=== PATIENT | female | born 1980 | race Caucasian/White ===

== ENCOUNTER 2020-01-25 00:03 | Outpatient (CLI) | payer BC, SELFPAY ==
[2020-01-25 17:26] LABS: SARS-CoV-2 RNA PCR Negative
== END 2020-01-25 00:04 | disposition home or self-care (01) ==
LOC: ANHCOVIDDT 00:04
PROVIDERS: PCP Family Medicine; Visit Provider Internal Medicine Gastroenterology
DX: Z11.59 Encounter for screening for other viral diseases (principal)
CPT/HCPCS: 87635; C9803; U0003

== ENCOUNTER 2020-01-28 00:23 | Day surgery (SDC) | payer BC, SELFPAY ==
[2020-01-24 09:14] VITALS: BMI 20.8
[2020-01-28 08:29] VITALS: BP 117/78; PULSE 82; RESP 16; TEMP 36.8; O2SAT 100
[2020-01-28] MEDS: LACTATED RINGERS 1,000 ML 150 ML IV CONT (08:34)
--- NOTE | 2020-01-28 08:56 | P.PNAN_ITS ---
Anes - Initial Pre Proc Eval Procedure: Operation Date: 01/28/20 09:30 Proposed Procedures p Colonoscopy - Farhad Pennington MD Date/Time: 01/28/20 08:56 Surgeon: Farhad Pennington MD Pre Op Diagnosis: change in bowel Patient Data Age: 39 Gender: F Height: 5 ft 4 in Weight: 55.7 kg Last Vital Signs Temp 98.3 F 01/28/20 08:29 Pulse 82 01/28/20 08:29 Resp 16 01/28/20 08:29 BP 117/78 01/28/20 08:29 Pulse Ox 100 01/28/20 08:29 Allergies Allergy/AdvReac Type Severity Reaction Status Date / Time Sulfa (Sulfonamide Allergy Unknown Rash Verified 01/24/20 09:09 Antibiotics) Home Medications Medication Instructions Recorded Confirmed Type acetaminophen-codeine 0.5 - 1 tablet PO Q4H PRN 06/19/19 01/24/20 History [Tylenol-Codeine #3] cyclobenzaprine 10 mg PO TID PRN 06/19/19 01/24/20 History hydrocodone-acetaminophen 1 tablet PO Q4H PRN 06/19/19 01/24/20 History valacyclovir 500 mg PO DAILY 06/19/19 01/24/20 History elagolix [Orilissa] 200 mg PO BID 09/19/19 01/24/20 History esomeprazole magnesium 40 mg PO DAILY 01/24/20 01/24/20 History norethindrone acetate 5 mg PO DAILY 01/24/20 01/24/20 History Patient hx anesthesia problems: none Family hx anesthesia problems: none [facility] Past Medical History Medical History (Updated 01/28/20 @ 08:56 by Kolton Lowe MD) GERD (gastroesophageal reflux disease) Migraine Social History Social History Smoking packs per day: 0.5 Smoking cigarettes per day: 10.0 Years smoked: 15 Smoking pack-years: 7.50 Smoking status: Current every day smoker Alcohol intake: current Anes - Eval Final PreProcedure Day of Procedure 01/28/20 08:56 Patient weight: normal Heart: regular rate and rhythm Lungs: clear to auscultation Airway: Mallampati scale class II Neurological: alert and oriented Last oral intake: >/= 8 hours ASA classification: II Emergent: no Anesthetic plan: proceed Anesthesia type and monitoring: general GIVS and standard monitoring Informed Consent: The patient's anesthetic plan and its attendant risks and benefits were discussed with the patient/family/POA. Questions were solicited and answers provided to the satisfaction of the patient/family/POA.
--- NOTE | 2020-01-28 09:34 | P.HP_ITS ---
History of Present Illness History of Present Illness Consent: Risks, benefits, and alternatives have been discussed and questions answered. Patient agrees to proceed with procedure. Chief complaint: change in bowel Narrative: Radha Feliciano is a 39 year old W female referred for colonoscopy for evaluation of persistent lower abdominal pain change in bowel pattern and abdominal bloating. Patient has known endometriosis and had her last laparoscopic exam in August this year was found to have significant adhesions and underwent adhesiolysis. Symptoms have recurred over the past month. No family history of colitis colon polyps or colon cancer [facility] Past Medical History Medical History GERD (gastroesophageal reflux disease) Migraine Social History Social History Smoking packs per day: 0.5 Smoking cigarettes per day: 10.0 Years smoked: 15 Smoking pack-years: 7.50 Smoking status: Current every day smoker Alcohol intake: current Meds Home Medications and Allergies Home Medications Medication Instructions Recorded Confirmed Type acetaminophen-codeine 0.5 - 1 tablet PO Q4H PRN 06/19/19 01/24/20 History [Tylenol-Codeine #3] cyclobenzaprine 10 mg PO TID PRN 06/19/19 01/24/20 History hydrocodone-acetaminophen 1 tablet PO Q4H PRN 06/19/19 01/24/20 History valacyclovir 500 mg PO DAILY 06/19/19 01/24/20 History elagolix [Orilissa] 200 mg PO BID 09/19/19 01/24/20 History esomeprazole magnesium 40 mg PO DAILY 01/24/20 01/24/20 History norethindrone acetate 5 mg PO DAILY 01/24/20 01/24/20 History Allergies Allergy/AdvReac Type Severity Reaction Status Date / Time Sulfa (Sulfonamide Allergy Unknown Rash Verified 01/24/20 09:09 Antibiotics) Vital Signs Vital Signs - 24 hr 01/28/20 08:29 Temperature 36.8 C Pulse Rate 82 Respiratory Rate 16 Blood Pressure 117/78 Pulse Oximetry 100 Exam Const: Orientation/consciousness: patient oriented x3 Resp: Auscultation: clear to auscultation bilaterally Cardio: Rate: regular rate Rhythm: regular rhythm Heart sounds: no murmurs GI: GI Palp: Yes Soft to palpation, No Tenderness to palpation present (GI), Yes No hepatosplenomegaly present and No Palpable mass present Auscultation: normal bowel sounds Neuro: General: patient oriented x3 and no focal motor deficits Extrem: General: no pedal edema Assessment and Plan Additional Plan colonoscopy for evaluation lower abdominal pain change in bowel pattern abdominal bloating
[2020-01-28 10:22] VITALS: BP 106/73; PULSE 80; RESP 24; O2SAT 100
[2020-01-28 10:32] VITALS: BP 128/81; PULSE 68; RESP 18; O2SAT 100
[2020-01-28 10:42] VITALS: BP 113/79; PULSE 64; RESP 18; O2SAT 100
== END 2020-01-28 10:53 | disposition home or self-care (01) ==
PROVIDERS: PCP Family Medicine; Visit Provider Internal Medicine Gastroenterology
PROC: 0DJD8ZZ Inspection of Lower Intestinal Tract, Via Natural or Artificial Opening Endoscopic (ICD-10-PCS; CPT 45378; principal; 2020-01-28 09:30)
DX: R10.84 Generalized abdominal pain (principal); R19.4 Change in bowel habit; K64.4 Residual hemorrhoidal skin tags; K21.9 Gastro-esophageal reflux disease without esophagitis; F17.210 Nicotine dependence, cigarettes, uncomplicated
CPT/HCPCS: 45378; J2001; J2704; J7120

== ENCOUNTER 2020-02-13 00:23 | Outpatient (CLI) | payer BC, SELFPAY ==
[2020-02-13 18:10] LABS: SARS-CoV-2 RNA PCR Negative
== END 2020-02-13 00:24 | disposition home or self-care (01) ==
LOC: ANHCOVIDDT 00:24
PROVIDERS: PCP Family Medicine; Visit Provider Obstetrics & Gynecology
DX: Z20.828 Contact with and (suspected) exposure to other viral communicable diseases (principal); Z01.812 Encounter for preprocedural laboratory examination
CPT/HCPCS: 87635; C9803; U0003

== ENCOUNTER 2020-02-13 09:06 | Outpatient (CLI) | payer BC, SELFPAY | END 2020-02-13 09:07 | disposition home or self-care (01) | LOC: ANHSURGERY 09:08 | PROVIDERS: PCP Family Medicine; Visit Provider Obstetrics & Gynecology | DX: R10.2 Pelvic and perineal pain (principal); Z20.828 Contact with and (suspected) exposure to other viral communicable diseases; Z01.812 Encounter for preprocedural laboratory examination | CPT/HCPCS: 36415; 86850; 86900; 86901 ==

== ENCOUNTER 2020-02-15 04:55 | Day surgery (SDC) | payer BC, SELFPAY ==
[2020-02-11 09:38] VITALS: BMI 21.2
--- NOTE | 2020-02-12 07:58 | P.HP_ITS ---
H&P: HPI History of Present Illness Chief complaint: Pelvic pain Narrative: November Braden is a 39 year old female status post hysterectomy is admitted for laparoscopic bilateral salpingo- oophorectomy. She has had chronic pelvic pain and dyspareunia. She has had a GI workup which was negative. She has had pelvic draining which has been unsuccessful. She has a history of endometriosis. Medical therapy has been not helpful as well. She understands this will make her permanently menopausal. The psychologic and physiologic changes associated with this were reviewed. Risks and benefits of this procedure reviewed in full Review of Systems Review of Systems: All systems reviewed & are unremarkable except as noted in HPI and below PMFSH Past Medical History Medical History GERD (gastroesophageal reflux disease) Migraine Social History Social History Smoking packs per day: 0.5 Smoking cigarettes per day: 10.0 Years smoked: 15 Smoking pack-years: 7.50 Smoking status: Current every day smoker Alcohol intake: current Meds Home Medications and Allergies Home Medications Medication Instructions Recorded Confirmed Type acetaminophen-codeine 0.5 - 1 tablet PO Q4H PRN 06/19/19 02/11/20 History [Tylenol-Codeine #3] cyclobenzaprine 10 mg PO TID PRN 06/19/19 02/11/20 History hydrocodone-acetaminophen 1 tablet PO Q4H PRN 06/19/19 02/11/20 History valacyclovir 500 mg PO DAILY 06/19/19 02/11/20 History esomeprazole magnesium 40 mg PO DAILY 01/24/20 02/11/20 History 21-iron fu-folic acid 1 tablet PO DAILY 02/11/20 02/11/20 History [ Complete] Allergies Allergy/AdvReac Type Severity Reaction Status Date / Time Sulfa (Sulfonamide Allergy Unknown Rash Verified 02/11/20 09:27 Antibiotics) Exam Const: General: no acute distress Eyes: General: appearance normal, both eyes and all related structures Neck: Neck: supple and no JVD Thyroid: thyroid normal Resp: Effort & Inspection: normal respiratory effort Auscultation: clear to auscultation bilaterally Cardio: Rate: regular rate Rhythm: regular rhythm GI: Inspection: non-distended GI Palp: Yes Soft to palpation, No Tenderness to palpation present (GI) and No Guarding due to palpation present (GI) Auscultation: normal bowel sounds : General: Yes bladder normal to inspection External Female Exam: normal external appearance Speculum Exam - Vagina: tenderness Speculum Exam - Cervix: Cervix absent Bimanual exam- vagina & uterus: uterus absent Bimanual Exam- Adnexa, other: tender bilaterally and cul-de-sac tenderness Skin: General skin exam: no rashes or lesions noted Extrem: General: normal to inspection and no edema Psych: Mental Status: mental status grossly normal Affect: normal affect Assessment and Plan Additional Plan impression: Chronic pelvic pain and dyspareunia secondary to endometriosis Plan: Laparoscopic bilateral salpingo-oophorectomy
[2020-02-15] VITALS (9 sets, daily range): BP systolic 106–136; BP diastolic 65–96; PULSE 48–77; RESP 14–18; TEMP 36.2–37.2; O2SAT 94–100
--- NOTE | 2020-02-15 06:34 | WPDHPUPDATE1 ---
History and Physical Update Update Date/Time: 02/15/20 06:34 History and Physical has been reviewed, including an updated exam of the patient. There are NO changes in the patient's condition. Risks, benefits, and alternatives have been discussed and questions answered. Patient agrees to proceed with procedure.
[2020-02-15] MEDS: LACTATED RINGERS 1,000 ML 30 ML IV CONT (09:55)
--- NOTE | 2020-02-15 10:08 | P.PNAN_ITS ---
Anes - Initial Pre Proc Eval Procedure: Operation Date: 02/15/20 11:30 Proposed Procedures p Laparoscopic Bilateral Salpingo-Oophorectomy - Je Jones MD Date/Time: 02/15/20 10:08 Surgeon: Je Jones MD Pre Op Diagnosis: Pelvic pain Patient Data Age: 39 Gender: F Height: 1.6 m Weight: 54.6 kg Allergies Allergy/AdvReac Type Severity Reaction Status Date / Time Sulfa (Sulfonamide Allergy Unknown Rash Verified 02/11/20 09:27 Antibiotics) Home Medications Medication Instructions Recorded Confirmed Type acetaminophen-codeine 0.5 - 1 tablet PO Q4H PRN 06/19/19 02/11/20 History [Tylenol-Codeine #3] cyclobenzaprine 10 mg PO TID PRN 06/19/19 02/11/20 History hydrocodone-acetaminophen 1 tablet PO Q4H PRN 06/19/19 02/11/20 History valacyclovir 500 mg PO DAILY 06/19/19 02/11/20 History esomeprazole magnesium 40 mg PO DAILY 01/24/20 02/11/20 History 21-iron fu-folic acid 1 tablet PO DAILY 02/11/20 02/11/20 History [ Complete] hydrocodone-acetaminophen [[place]eraine] 1 tablet PO Q4H PRN #30 tablet 02/15/20 Rx Patient hx anesthesia problems: none Family hx anesthesia problems: none PMFSH Past Medical History Medical History GERD (gastroesophageal reflux disease) Migraine Social History Social History Smoking packs per day: 0.5 Smoking cigarettes per day: 10.0 Years smoked: 15 Smoking pack-years: 7.50 Smoking status: Current every day smoker Alcohol intake: current Anes - Eval Final PreProcedure Day of Procedure 02/15/20 10:08 Patient weight: normal Heart: regular rate and rhythm Lungs: clear to auscultation and normal air movement Airway: Mallampati scale class II Neurological: alert and oriented Last oral intake: >/= 8 hours ASA classification: II Emergent: no Anesthetic plan: proceed Anesthesia type and monitoring: general ETT and standard monitoring Informed Consent: The patient's anesthetic plan and its attendant risks and benefits were discussed with the patient/family/POA. Questions were solicited and answers provided to the satisfaction of the patient/family/POA.
[2020-02-15] MEDS: KETOROLAC 30 MG/ML VIAL (*BKC) IV PUSH (10:59)
--- NOTE | 2020-02-15 11:04 | P.OP_ITS ---
Procedure Note - Detailed Date of procedure: 02/15/20 Pre-op diagnosis: Pelvic pain Surgeon: Je Jones MD Postop diagnosis: Pelvic pain / endometriosis Procedure: Laparoscopic destruction of endometriosis and bilateral salpingo- oophorectomy EBL: 5Cc Anesthesia: General endotracheal Complications: None Findings: Absent uterus small areas of endometriosis along the vaginal cuff. Endometriosis on the left ovary Description of procedure: The patient was prepped and draped in the sterile fashion placed in the dorsal lithotomy position. Under excellent general endotracheal anesthesia a sponge stick was placed in the vagina. The bladder was then emptied of clear urine with catheter. Gloves were changed. Supraumbilical incision made. Veress needle passed in the abdomen. Abdomen was filled with CO2 gas [id number]. 5Mm trocar was advanced under direct visualization assuring no injury. The above findings were seen. A patient was placed in Trendelenburg and a left lateral quadrant incision made and the 5mm trocar advanced under direct visualization. A right lower quadrant incision made in the 10mm trocar advanced under direct visualization. The areas of endometriosis were photo documented. These were then point cauterized at 35 w per 2nd. The left infundibulopelvic structure was then skeletonized. This was clamped, burned, cut with the LigaSure and placed in the cul-de-sac. In like fashion the right infundibulopelvic structure was skeletonized. This was clamped, burned, cut. The 2 ovaries were then placed in the Endo-Catch. Excellent hemostasis was seen. The gas was removed from the abdomen after the specimens were removed through the right lower quadrant. The incisions were closed with 4 O Monocryl and glue. All sponge, needle, instrument counts were correct. There were no immediate complications. Patient went to recovery in satisfactory condition
== END 2020-02-15 13:00 | disposition home or self-care (01) ==
PROVIDERS: PCP Family Medicine; Visit Provider Obstetrics & Gynecology
PROC: (CPT 49320; principal; 2020-02-15 11:30)
DX: R10.2 Pelvic and perineal pain (principal); N80.3 Endometriosis of pelvic peritoneum; N73.6 Female pelvic peritoneal adhesions (postinfective); N94.10 Unspecified dyspareunia; K21.9 Gastro-esophageal reflux disease without esophagitis; F17.210 Nicotine dependence, cigarettes, uncomplicated
CPT/HCPCS: 58661; 58662; 88305; A9270; J1100; J1885; J2250; J2405; J2704; J2710; J3010; J7120

== ENCOUNTER 2020-04-11 07:32 | Outpatient (CLI) | payer BC, SELFPAY ==
--- NOTE | ~2020-04-11 | US_ITS ---
EXAMINATION: US abdomen complete DATE: 04/11/2020 08:30 INDICATION: Right upper quadrant abdominal pain. TECHNIQUE: Multiple grayscale and Doppler ultrasound images of the abdomen were obtained. COMPARISON: CT abdomen and pelvis 04/04/2019 FINDINGS: Abdominal aorta is normal in caliber. Inferior vena cava is normal. The visualized portions of the head, body, and tail of the pancreas are normal. The liver is normal without focal lesion. Th ere is normal flow in main portal vein. The gallbladder is normal in size. No gallstones or gallbladd er wall thickening. There was no sonographic Serrano sign. The common duct is normal and measures 3 mm . The kidneys are normal in size. There is a 5 mm stone in right kidney. The spleen is normal in size . IMPRESSION: 1. 5 mm nonobstructing right kidney stone. Reviewed, dictated and finalized at location B.
--- NOTE | ~2020-04-11 | US_ITS ---
EXAMINATION: US pelvic complete w TV DATE: 04/11/2020 08:30 INDICATION: Left lower quadrant abdominal pain. TECHNIQUE: Multiple transabdominal and transvaginal sonographic images of the pelvis were obtained. COMPARISON: Pelvis ultrasound 06/08/2019 FINDINGS: TRANSABDOMINAL ULTRASOUND: The uterus is absent. There is no free fluid in the pelvis. TRANSVAGINAL ULTRASOUND: The ovaries are absent. IMPRESSION: 1. Absent uterus and ovaries. Reviewed, dictated and finalized at location B.
== END 2020-04-11 07:33 | disposition home or self-care (01) ==
PROVIDERS: PCP Family Medicine; Visit Provider Obstetrics & Gynecology
DX: R10.11 Right upper quadrant pain (principal); R10.32 Left lower quadrant pain; Z90.710 Acquired absence of both cervix and uterus; N20.0 Calculus of kidney
CPT/HCPCS: 76700; 76830; 76856

== ENCOUNTER 2020-06-04 13:51 | Outpatient (CLI) | payer BC, SELFPAY ==
--- NOTE | ~2020-06-04 | CT_ITS ---
EXAMINATION: CT abdomen pelvis w con INDICATION: Endometriosis, umbilical hernia, abdominal pain TECHNIQUE: Computed tomographic images of the abdomen and pelvis were obtained after the administrati on of 100 cc of Omnipaque 350 intravenous contrast. The dose-length product (DLP) was 221.87 mGy-cm. Automated exposure control and iterative reconstruction technique were employed. COMPARISON: 04/04/2019 FINDINGS: There are patchy nodular and airspace opacities of the visualized lung bases. The heart siz e is normal. A 4 mm cyst is noted in the right hepatic lobe. The spleen, pancreas, gallbladder, and a drenal glands are normal. There is a 5 mm nonobstructing stone of the right kidney. The left kidney i s unremarkable. No pathologically enlarged abdominal or pelvic lymph nodes are identified. There is n o free intraperitoneal gas or evidence of bowel obstruction. There are changes of hysterectomy and bi lateral salpingo-oophorectomy. The appendix is normal. There is a fat-containing umbilical hernia. Mi ld lumbar spondylosis is noted. IMPRESSION: 1. Fat-containing umbilical hernia. Reviewed, dictated and finalized at location A.
== END 2020-06-04 13:52 | disposition home or self-care (01) ==
PROVIDERS: PCP Family Medicine; Visit Provider Obstetrics & Gynecology
DX: R10.84 Generalized abdominal pain (principal); K42.9 Umbilical hernia without obstruction or gangrene
CPT/HCPCS: 74177; Q9967

== ENCOUNTER 2020-07-08 10:51 | Outpatient (CLI) | payer BC, SELFPAY ==
--- NOTE | ~2020-07-08 | XR_ITS ---
EXAMINATION: XR abdomen/kub 1V EXAM DATE: 07/08/2020 11:19 INDICATION: Right flank pain. TECHNIQUE: Frontal projection(s) of the abdomen for interpretation. Comparison is made to prior exami nation from 07/17/2019. FINDINGS: There is 5 mm right mid calyceal stone again noted. No other suspicious calcifications. Mo derate amount of colonic stool and gas. No small bowel obstruction. There is no organomegaly. IMPRESSION: Right nephrolithiasis. Reviewed, dictated and finalized at location A. T [employer]ISH[employer] IMPRESSION: Right nephrolithiasis.
== END 2020-07-08 10:52 | disposition home or self-care (01) ==
PROVIDERS: PCP Family Medicine; Visit Provider Urology
DX: N20.0 Calculus of kidney (principal)
CPT/HCPCS: 74018

== ENCOUNTER 2021-01-27 16:57 | Outpatient (CLI) | payer BC, SELFPAY ==
--- NOTE | ~2021-01-27 | XR_ITS ---
XR abdomen/kub 1V DATE: 01/27/2021 17:16 INDICATION: Right renal stone. History of kidney stones, lithotripsy. TECHNIQUE: AP projection, 2 views COMPARISON: 07/08/[address] abdomen pelvis FINDINGS: Stable approximately 5 mm calcified calculus of mid right kidney. No other urinary tract ca lcification is detected radiographically. The psoas shadows are intact. No visceromegaly is evident. There is no evidence of bowel obstruction. The lung bases are clear. Heart size appears normal. IMPRESSION: Stable 5 mm right mid renal calcified calculus Reviewed, dictated and finalized at Location A. Reviewed, dictated and finalized at location A.
== END 2021-01-27 16:58 | disposition home or self-care (01) ==
LOC: ANHIMG 16:59
PROVIDERS: PCP Family Medicine; Visit Provider Nurse Practitioner Adult Health
DX: N20.0 Calculus of kidney (principal)
CPT/HCPCS: 74018

== ENCOUNTER 2021-08-13 09:30 | Outpatient (CLI) | payer BC, SELFPAY | END 2021-08-13 09:31 | disposition home or self-care (01) | LOC: ANHSURGERY 09:32 | PROVIDERS: PCP Family Medicine; Visit Provider Surgery | DX: Z01.812 Encounter for preprocedural laboratory examination (principal); R10.2 Pelvic and perineal pain | CPT/HCPCS: 36415; 86850; 86900; 86901 ==

== ENCOUNTER → 2021-08-15 00:10 | Outpatient (CLI) | payer BC, SELFPAY ==
[2021-08-15 17:21] LABS: SARS-CoV-2 RNA PCR Negative (Negative)
== END ==
PROVIDERS: PCP Family Medicine; Visit Provider Surgery
DX: Z01.812 Encounter for preprocedural laboratory examination (principal); Z20.822 Contact with and (suspected) exposure to COVID-19
CPT/HCPCS: C9803; U0003; U0005

== ENCOUNTER 2021-08-18 01:40 | Day surgery (SDC) | payer BC, SELFPAY ==
[2021-08-10 15:01] VITALS: BMI 22.0
--- NOTE | 2021-08-10 15:05 | PC.NURSE ---
Report to the Outpatient Waiting Room, entrance under the green pavilion located off [facility], at time __0930_ on date 08-18-2021_. OR Time: __1130_. - You and your visitor will be asked a series of questions to screen for COVID 19 for your protection. - A mask is required within the hospital. - Only one visitor is allowed at this time. Patient visitors will be guided where to wait when not with patient. Preoperative COVID Testing Requirements: Covid test 08-15-2021 at 835am. No COVID Test needed if: (proof is required; if not received patient will have Rapid Test prior to entry) - Patient has received COVID Vaccine at least 14 days prior to procedure date or - Patient has positive COVID test result within last 90 days of surgery date. COVID Test needed if above criteria is not met If not COVID vaccinated a COVID test must be conducted within 72 hours of surgery and patient is asked to isolate self from time of testing until procedure. You will go to the [employer] [facility] for your COVID testing. The [employer] [facility] site is located at the corner of [address] [facility]. You will only be called if COVID results are positive and your surgeon may reschedule your elective surgery date. Patients may have clear liquids (water, carbonated beverages, clear teas, apple juice) until 3 hours prior to surgery with a maximum of 20 ounces. - No food from midnight until time of surgery - Infants may have breast milk until 4 hours before surgery, infant formula 6 hours prior to surgery. - Children will be allowed to drink immediately following surgery. If applicable, please bring a bottle or sippy cup to assist with drinking. Juice, water, soda, and popsicles are readily available. For infants on formula, please bring formula the day of surgery. Pacifiers are allowed. Take the following medications with a SIP of water the morning of surgery: Medications to discontinue per physician Stop multivitamin [id number] Date to take last dose Please no make-up, nail yi, hairspray, perfume, deodorant, or body powder the day of surgery. No jewelry (including any body piercings) or valuables the day of surgery, leave them at home. Please take a shower or bath the night before, or the morning of, surgery with an antibacterial soap. Wear comfortable, loose fitting clothing. Children are encouraged to wear pajamas. - Jewelry must be removed prior to entering the operating room. Rings and piercings that are not removed may be cut off. - The hospital will not accept responsibility for valuables. - Please leave all valuables, including medications, at home the day of surgery. If you are going home after surgery, a licensed industrial tractor driver must drive you home. - NO public transportation without another adult. - We recommend that an adult stay with you for 24 hours following discharge. - We also recommend that you do not drive, make important decision, drink alcoholic beverages, or take any drugs that were not prescribed by your health care provider for at least 24 hours after your discharge time. For Pediatric surgeries, we recommend two adults accompany the child home (only one inside the building at this time). Follow any additional instructions given to you from your surgeon. Telephone instructions given to _Patient____and asked if any additional questions and then verbalized understanding. Patient advised to call surgeon office or pre surgery nurse liaison [phone] if any additional questions.
--- NOTE | 2021-08-11 16:14 | PM.IMHP ---
H&P: HPI History of Present Illness Date/Time: 08/11/21 16:14 31-year-old female status post hysterectomy admitted for repair of ventral hernia with Dr. Celia mena. She will undergo diagnostic laparoscopy secondary to chronic pelvic pain and discomfort. She has a long history of endometriosis. Risks and benefits reviewed in great detail Chief Complaint: Ventral hernia and pelvic pain Review of Systems Review of Systems: All systems reviewed & are unremarkable except as noted in HPI and below PMFSH Past Medical History Medical History GERD (gastroesophageal reflux disease) History of kidney stones Migraine Surgical History Surgical History Endometriosis determined by laparoscopy Laparoscopic destruction of endometriosis. H/O: hysterectomy History of bilateral salpingo-oophorectomy 01/2020 Hx of nephrolithotomy with removal of calculi Apr 2019, June 2019 Family History Family History Grandparent Diabetes mellitus Heart disease Family history of hypertension Family history of stroke Father Osteoporosis Mother Osteoporosis Social History Social History Smoking packs per day: 0.5 Smoking cigarettes per day: 10.0 Years smoked: 17 Smoking pack-years: 8.50 Smoking status: Former smoker Tobacco type: cigarettes Alcohol intake: current Alcohol use details: Rarely Additional living arrangements comments: Patient lives at home with her and two children, ages 5&9. 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 Gender identity (if verbalized by the patient): Female Meds Home Medications and Allergies Home Medications Medication Instructions Recorded Confirmed Type cyclobenzaprine 10 mg PO TID PRN 06/19/19 08/10/21 History hydrocodone-acetaminophen 1 tablet PO Q4H PRN 06/19/19 08/10/21 History valacyclovir 500 mg PO DAILY 06/19/19 08/10/21 History estradiol [EstroGel] 1.25 g TOPICAL DAILY 08/10/21 08/10/21 History multivitamin 1 tablet PO DAILY 08/10/21 08/10/21 History progesterone micronized 100 mg PO DAILY 08/10/21 08/10/21 History Allergies Allergy/AdvReac Type Severity Reaction Status Date / Time Sulfa (Sulfonamide Allergy Unknown Rash Verified 08/10/21 14:46 Antibiotics) Exam Const: General: no acute distress Eyes: General: appearance normal, both eyes and all related structures Neck: Neck: supple and no JVD Thyroid: thyroid normal Resp: Effort & Inspection: normal respiratory effort Auscultation: clear to auscultation bilaterally Cardio: Rate: regular rate Rhythm: regular rhythm GI: Inspection: non-distended GI Palp: Yes Soft to palpation, No Tenderness to palpation present (GI) and No Guarding due to palpation present (GI) Auscultation: normal bowel sounds : External Female Exam: normal external appearance Speculum Exam - Vagina: normal appearance of the vagina Speculum Exam - Cervix: Cervix absent Bimanual exam- vagina & uterus: uterus absent Bimanual Exam- Adnexa, other: no masses and tender bilaterally Skin: General skin exam: no rashes or lesions noted Extrem: General: normal to inspection and no edema Psych: Mental Status: mental status grossly normal Affect: normal affect Assessment and Plan Additional Plan Impression: Pelvic pain in a patient status post hysterectomy with a ventral hernia Plan diagnostic laparoscopy. Dr. Dr. Balderas will repair repair of ventral hernia
[2021-08-18] VITALS (8 sets, daily range): BP systolic 92–111; BP diastolic 58–83; PULSE 58–92; RESP 14–18; TEMP 36.1–36.5; O2SAT 96–100
--- NOTE | 2021-08-18 09:09 | WPDANESEPPF ---
Anes - Initial Pre Proc Eval Procedure: Operation Date: 08/18/21 11:30 Proposed Procedures p Open Ventral Hernia Repair with Mesh - Roger Macario DO s Diagnostic Laparoscopy - Je Jones MD Date/Time: 08/18/21 09:09 Surgeon: Roger Macario DO Pre Op Diagnosis: ventral hernia, pelvic pain Patient Data Age: 40 Gender: F Height: 1.63 m Weight: 58.2 kg Allergies Allergy/AdvReac Type Severity Reaction Status Date / Time Sulfa (Sulfonamide Allergy Unknown Rash Verified 08/10/21 14:46 Antibiotics) Home Medications Medication Instructions Recorded Confirmed Type cyclobenzaprine 10 mg PO TID PRN 06/19/19 08/10/21 History hydrocodone-acetaminophen 1 tablet PO Q4H PRN 06/19/19 08/10/21 History valacyclovir 500 mg PO DAILY 06/19/19 08/10/21 History estradiol [EstroGel] 1.25 g TOPICAL DAILY 08/10/21 08/10/21 History multivitamin 1 tablet PO DAILY 08/10/21 08/10/21 History progesterone micronized 100 mg PO DAILY 08/10/21 08/10/21 History Patient hx anesthesia problems: none Family hx anesthesia problems: none Results Review: All pre-operative results and documents have been reviewed as part of the pre-operative evaluation. [facility] Past Medical History Medical History (Updated 08/18/21 @ 09:10 by Angelo Malone MD) Chronic narcotic use Endometriosis GERD (gastroesophageal reflux disease) History of kidney stones Migraine Tobacco abuse Ventral hernia without obstruction or gangrene Surgical History Surgical History Endometriosis determined by laparoscopy Laparoscopic destruction of endometriosis. H/O: hysterectomy History of bilateral salpingo-oophorectomy 01/2020 Hx of nephrolithotomy with removal of calculi Apr 2019, June 2019 Family History Family History Grandparent Diabetes mellitus Heart disease Family history of hypertension Family history of stroke Father Osteoporosis Mother Osteoporosis Social History Social History Smoking packs per day: 0.5 Smoking cigarettes per day: 10.0 Years smoked: 15 Smoking pack-years: 7.50 Smoking status: Current every day smoker Tobacco type: cigarettes Alcohol intake: current Alcohol use details: Rarely Additional living arrangements comments: Patient lives at home with her and two children, ages 5&9. Additional occupation/education comments: [employer] Gender identity (if verbalized by the patient): Female Anes - Eval Final PreProcedure Day of Procedure 08/18/21 09:09 Patient weight: normal Heart: regular rate and rhythm Lungs: clear to auscultation and normal air movement Airway: Mallampati scale class II Neurological: alert and oriented Last oral intake: >/= 8 hours ASA classification: III Emergent: no Anesthetic plan: proceed Anesthesia type and monitoring: general ETT Results Review: All pre-operative results and documents have been reviewed as part of the pre-operative evaluation. Informed Consent: The patient's anesthetic plan and its attendant risks and benefits were discussed with the patient/family/POA. Questions were solicited and answers provided to the satisfaction of the patient/family/POA.
--- NOTE | 2021-08-18 09:11 | WPDANESPNB ---
Anes - Peripheral Nerve Block Date/Time: 08/18/21 09:11 I have discussed with the patient/family/POA the placement of a peripheral nerve block for post-operative pain management, including associated risks, benefits, complications, and side effects. Alternative methods of post-operative analgesia were detailed. Questions were solicited and answers provided to the satisfaction of the patient/family/POA. Time-Out: A pre-procedural Time-Out was completed immediately before starting the procedure and confirmed: Patient Identification, Site, Procedure, Patient Position and the Availability of Requisite Equipment. Clinical Indications: Acute post-operative pain management requested by the operative surgeon. Nerve Block Insertion Note Anes-nerve block: other (b/l t7 elizabeth block) Patient position: other (sitting) Skin prep: chlorhexidine Needle: 22 gauge, stimulating, insulated echogenic needle. Needle length: 80 mm Technique: ultrasound Technique comment: in plane Injectate: bupivacaine 0.25% with epi 5 mcg/ml (40cc) Observations: tolerated well Complications: none Procedure start time:: 1055 Procedure end time:: 1100
[2021-08-18] MEDS: ACETAMINOPHEN 500 MG TABLET 1000 MG PO (10:38)
[2021-08-18] MEDS: KETOROLAC 15 MG/ML VIAL (*BKC) IV PUSH (10:39)
[2021-08-18] MEDS: LACTATED RINGERS 1,000 ML 30 ML IV CONT ×2 (10:39→12:39)
--- NOTE | 2021-08-18 10:52 | WPDHPUPDATE1 ---
History and Physical Update Update Date/Time: 08/18/21 10:52 History and Physical has been reviewed, including an updated exam of the patient. There are NO changes in the patient's condition. Risks, benefits, and alternatives have been discussed and questions answered. Patient agrees to proceed with procedure.
--- NOTE | 2021-08-18 11:27 | WPDHPUPDATE1 ---
History and Physical Update Update Date/Time: 08/18/21 11:27 History and Physical has been reviewed, including an updated exam of the patient. There are NO changes in the patient's condition. Risks, benefits, and alternatives have been discussed and questions answered. Patient agrees to proceed with procedure.
[2021-08-18] MEDS: ceFAZolin 2 GM/D5W 50 ML 2 GM/50 ML BAG IVPB (11:30)
--- NOTE | 2021-08-18 12:05 | W.PM.PROC2 ---
Procedure Note - Detailed Date of Procedure 08/18/21 Pre-op Diagnosis ventral hernia, pelvic pain Post-op Diagnosis other (Mild endometriosis) Procedure Performed Laparoscopic destruction endometriosis Surgeon Je Jones MD Anesthesia general Indications 40-year-old female status post hysterectomy and bilateral salpingo-oophorectomy with pelvic pain and and ventral hernia g Findings Absent uterus ovaries and tubes. The pelvis appeared relatively pristine. There were 2 small areas of endometriosis on the vaginal cuff which were cauterized at 35 w per 2nd with monopolar cautery Description of Procedure The patient was prepped draped in the normal sterile fashion placed in the dorsal lithotomy position. Under excellent general trach anesthesia weighted speculum placed post rupture Gyne. Sponge stick placed in vagina bladder drained of clear urine. The weighted speculum was removed and the gloves were changed. A supraumbilical incision made the Veress needle passed in the abdomen. Abdomen filled with CO2 gas 15mmmmmercury. The 5mm trocar advanced under direct visualization assuring no injury. Two small areas of endometriosis were seen on the vaginal cuff. These were point cauterized at 35 w per 2nd with monopolar cautery. Irrigation undertaken no other abnormalities were seen. Photo documentation was undertaken. Dr. Jaimes curative over from there. The sponge stick was removed from the vagina and he was to close the other incisions. Please see his operative report for the remainder of the procedure Estimated Blood Loss 5 Packing No Pathology none sent Complications No immediate complications Condition stable Disposition no change
[2021-08-18] MEDS: BUPIVACAINE HCL 0.5% PF 30 ML VIAL INFILTRATE (12:08)
--- NOTE | 2021-08-18 12:48 | P.OP_ITS ---
Procedure Note - Detailed Date of Procedure 08/18/21 Pre-op Diagnosis ventral hernia, pelvic pain Post-op Diagnosis same Procedure Performed Open ventral hernia repair Surgeon Roger Macario, DO Anesthesia general and local (0.5% bupivacaine) Indications This is a 40-year-old woman who presents with periumbilical pain and a bulge that she has noticed over the past several years. It has become more symptomatic over the past year. She previously had a CT which showed evidence of a fat containing hernia near the umbilicus. A periumbilical ventral hernia was identified just to the left of the umbilical stalk on physical exam. Discussions were made with the patient about treatment options and decision was made to proceed with ventral hernia repair with possible mesh. Findings After completing the diagnostic laparoscopy by Dr. Alice Simeon, I then proceeded with ventral hernia repair. The supraumbilical incision was extended to visualize the periumbilical hernia. A 4-5 mm hernia was identified at the fascia. The hernia defect was repaired using 0 Ethibond [id number] sutures in a vertical fashion. No specimens were obtained for pathology. No mesh was required for repair. Description of Procedure Procedure as well as risks, benefits, and alternatives were discussed with the patient. Written consent was obtained and placed in chart prior to procedure. Patient was brought back to surgical suite. She was placed supine on operating table. She was then intubated by Anesthesia Department. Her abdomen was prepped and draped in sterile fashion using chlorhexidine prep. After the diag nostic laparoscopy was completed, I then proceeded with ventral hernia repair. 0.5% bupivacaine was infiltrated locally around the operative area. A 4 cm curvilinear incision was made just superior to the umbilicus using a 15 blade scalpel. Electrocautery was used for hemostasis and for dissection down through the subcutaneous fat. Hernia sac was encountered and this was carefully freed up from surrounding subcutaneous fat using electrocautery. The hernia sac was freed up all the way down to the level of the fascia, and then it was transected using electrocautery. The hernia sac was excised and discarded. The umbilical stalk was then lifted off of the fascia with electrocautery. The hernia defect was then measured. This was measuring approximately 4 mm. The decision was made to repair the hernia defect primarily using 0 Ethibond [id number]-rb-[id number] sutures. Total of 3 sutures were placed in a vertical fashion to approximate the fascia. The sutures were tied down in place. The repair was inspected and appeared secure. 0.5% bupivacaine was infiltrated around the fascia and subcutaneous space. The umbilical stalk was then reapproximated to the fascia using a 3 0 Vicryl simple interrupted suture. The deep dermis was reapproximated using 3 0 Vicryl simple interrupted sutures, and then the skin was approximated using 4 Monocryl running subcuticular suture. Exofin glue was then applied on top. The patient was then awakened from anesthesia, extubated, and transferred to recovery. Estimated Blood Loss 5 Complications No immediate complications Condition stable Disposition same day
[2021-08-18] MEDS: oxyCODONE HCL (*CRX) 5 MG TAB IR PO (13:44)
--- NOTE | 2021-08-18 14:15 | SUR.PHASEII ---
pt meets discharge criteria. lisa petty is helping pt get dressed then pt is waiting for her ride.
== END 2021-08-18 14:23 | disposition home or self-care (01) ==
PROVIDERS: Obstetrics & Gynecology; PCP Family Medicine; Visit Provider Surgery
PROC: 0WQF0ZZ Repair Abdominal Wall, Open Approach (ICD-10-PCS; CPT 49560; principal; 2021-08-18 11:30)
PROC: (CPT 49320; 2021-08-18 11:30)
DX: K43.9 Ventral hernia without obstruction or gangrene (principal); Z79.891 Long term (current) use of opiate analgesic; F17.210 Nicotine dependence, cigarettes, uncomplicated
CPT/HCPCS: 49560; A9270; J0690; J1100; J1885; J2250; J2405; J2704; J3010; J7030; J7120

== ENCOUNTER 2023-09-10 12:22 | Outpatient (CLI) | payer BC, SELFPAY ==
--- NOTE | ~2023-09-10 | CT_ITS ---
CT of the Abdomen and Pelvis: Indication: Abdominal discomfort, endometriosis Technique: 2.5 mm axial scans were obtained through the abdomen and pelvis following intravenous adm inistration of 100 cc of Omnipaque 350. Dose reduction technique was used on this scan by utilizing a utomated exposure control and iterative reconstruction technique. The dose-length product (DLP) was 1 97.06 mGy-cm. COMPARISON: 06/04/2020 Findings: Scans through the lung bases are unremarkable. The liver, spleen, pancreas, gallbladder, adrenals and left kidney are within normal limits. 6 mm rig ht nonobstructing renal stone is again present. No evidence of aortic aneurysm. No lymphadenopathy. No bowel obstruction or bowel wall thickening. There is no evidence to suggest acute appendicitis. Images through the pelvis were performed. Urinary bladder unremarkable. Patient is post hysterectomy. No definite pelvic mass seen. No ascites. Impression: No acute abnormality. Stable 6 mm nonobstructing right renal stone. Reviewed, dictated and finalized at location . [facility] LAB TECHNICIAN Impression: No acute abnormality. Stable 6 mm nonobstructing right renal stone.
== END 2023-09-10 12:23 | disposition home or self-care (01) ==
LOC: ANHIMG 12:23
PROVIDERS: Visit Provider Obstetrics & Gynecology
DX: N20.0 Calculus of kidney (principal); Z87.760 Personal history of (corrected) congenital diaphragmatic hernia or other congenital diaphragm malformations
CPT/HCPCS: 74177; Q9967

== ENCOUNTER 2024-11-29 09:32 | Outpatient (NON) | payer BC, SELFPAY ==
--- OUTSIDE RECORDS SUMMARY | 2024-11-29 09:57 | XMS_ITS | Clinical Summary ---
Author Organization [facility] Address [address] [place] [address] Care Team Providers Care Cement Sprayer Helper Name Role Phone Gigi Kern MD Primary Care Provider [phone] Source Comments [facility],non-owned Affiliates and Associated Physician Practices is amultiple site organization consisting of ambulatory clinics and hospital sitesin [place], [place], [place] and [place]. This disclosure is being madepursuant to the Care Everywhere program and may not contain all information available regarding this patient. Last updated 18.[facility] Allergies Active Allergy Reactions Criticality Noted Date Comments Sulfa Drugs Rash Medium 07/23/2020 Medications * Be aware that medications may not be up to date on this document. Alwaysverify current medications with the patient. Medication Sig Dispensed Refills Start Date End Date Status valACYclovir (VALTREX) 500 MG tablet Take 1 (one) tablet by mouth once daily 03/28/2020 Active ESTROGEL 0.75 MG/1.25 GM (0.06%) gel Apply 1 applicator to affected area once daily 05/02/2020 Active cyclobenzaprine (FLEXERIL) 10 MG tablet Take 1 (one) tablet by mouth at bedtime 30 tablet 2 10/27/2020 Active Meth-Hyo-M Bl-Na Phos-Ph Antione (URIBEL) 118 MG Take 1 (one) capsule by mouth 3 times daily as needed 60 capsule 1 12/22/2020 Active bupivacaine (MARCAINE) 0.5 % injectionIndication s:Chronic interstitial cystitis,Chronic pelvic pain in female by Infiltration route Two times a week Mix with Heparin. Insert via urethral catheter into bladder 1-2x/weekly as needed. 240 mL 3 01/05/2021 Active Heparin Sodium, Porcine, [address]607 UNIT/ML injectionIndication s:Interstitial Cystitis 1 mL by Intravesical route Two times a week Mix with Bupivacaine. Insert per urethral catheter weekly as directed. Reasons: Chronic Bladder Wall Inflammation 8 vial 3 01/05/2021 Active Syringe/Needle, Disp, (SYRINGE 3CC/20GX1 ) 20G X 1 3 ML MISCIndications:Int erstitial Cystitis Use 1 package Two times a week Use with Heparin. Reasons: Chronic Bladder Wall Inflammation 8 Each 3 01/05/2021 Active Irrigation Supplies (BARD IRRIGATION SYRINGE/BULB) MISCIndications:Chr onic interstitial cystitis,Chronic pelvic pain in female 1 syringe by Intravesical route Two times a week Must connect to bladder catheter. 8 Each 3 01/06/2021 Active Catheters (BARDIA URETHRAL CATHETER 14FR) MISCIndications:Chr onic interstitial cystitis,Chronic pelvic pain in female 1 Units by Intravesical route Two times a week Please dispense 12 Fr. Please dispense a box in case she breaks sterile field. 8 Each 3 01/06/2021 Active Lubricants (SB LUBRICATING JELLY) GELIndications:Surveillance Director madeline interstitial cystitis,Chronic pelvic pain in female by Intravesical route Two times a week Apply .25g to tip of catheter when self catheterizing. Must be water soluble, STERILE, and greaseless. 30 g 1 01/06/2021 Active Progesterone (PROMETRIUM) 100 MG capsule Take 1 (one) capsule by mouth at bedtime 30 capsule 2 03/23/2021 Active methocarbamol (Robaxin) 500 MG tablet Take 2 (two) tablets by mouth every 8 hours 120 tablet 11/18/2022 Active ketorolac (Toradol) 10 MG tablet Take 1 (one) tablet by mouth every 6 hours as needed for Pain 20 tablet 03/08/2023 Active Other Insert 1 suppository into the vagina every 12 hours as needed Valium/Baclofen 10/8 mg; place one suppository in the vagina as needed for pain, up to every 12 hours 30 Each 04/06/2023 Active Other Insert 1 suppository into the vagina every 12 hours as needed Valium/Baclofen 5/4 mg; place one suppository in the vagina as needed for pain, up to every 12 hours 30 Each 04/06/2023 Active Other Insert 1 suppository into the vagina every 12 hours as needed Valium/Baclofen 5/4 mg; place one suppository in the vagina as needed for pain, up to every 12 hours 60 Each 05/18/2023 Active Active Problems No known active problems Social History Tobacco Use Types Packs/Day Years Used Date Smoking Tobacco: Every Day Cigarettes Smokeless Tobacco: Never Tobacco Cessation:Ready to Q uit: Not Asked; Counseling Given: Not Answered Alcohol Use Standard Drinks/Week Comments Yes 0 (1 standard drink = 0.6 oz pur e alcohol) PHQ-2 Answer Date Recorded PHQ2 TOTAL SCORE 1 03/03/2023 Sex and Gender Information Value Date Recorded Sex Assigned at Not on file Gender Identity Not on file Sexual Orientation Not on file Last Filed Vital Signs Vital Sign Reading Time Taken Comments Blood Pressure 110/82 03/03/2023 8:29 AM CDT Pulse 64 12/08/2020 4:58 PM CDT Temperature 36.9 C (98.4 F) 06/29/2021 11:12 AM CDT Respiratory Rate - - Oxygen Saturation - - Inhaled Oxygen Concentration - - Weight 50.3 kg (111 lb) 03/03/2023 8:29 AM CDT Height 160 cm (5' 3 ) 03/03/2023 8:29 AM CDT Body Mass Index 19.66 03/03/2023 8:29 AM CDT Plan of Treatment Health Maintenance Due Date Last Done Comments LIPID TESTING 1981 MAMMOGRAM 1981 PAP SMEAR 1981 HIV SCREENING 1996 HEPATITIS C SCREENING 11/20/1999 DTAP/TDAP/TD VACCINES (1 - Tdap) 2000 HEPATITIS B VACCINE (1 of 3 - 19+ 3-dose series) 2000 PNEUMOCOCCAL VACCINE (1 of 2 - PCV) 2000 COVID-19 VACCINE ( - 2023-2 5 season) 2024 INFLUENZA VACCINE (#1) 2024 DEPRESSION SCREENING 08/29/2024 03/03/2023 ZOSTER VACCINE (1 of 2) 11/25/2031 HIB VACCINE Aged Out No longer eligi ble based on patient's age to complete this topic HPV VACCINE Aged Out No longer eligi ble based on patient's age to complete this topic MENINGOCOCCAL (Group B) VACC INE SHARED DECISION-MAKING Aged Out No longer eligibl e based on patient's age to complete this topic MENINGOCOCCAL GROUPS A/C/Y/W VACCINE Aged Out No longer eligible b ased on patient's age to complete this topic Care Teams Cement Sprayer Helper Relationship Specialty Start Date End Date Gigi Kern MD [address] [place] [id number] PCP - General 11/07/18
--- OUTSIDE RECORDS SUMMARY | 2024-11-29 09:57 | XMS_ITS | Encounter Summary ---
Author Organization [facility] Address [address] [place] [address] Care Team Providers Care Assistant Professor Of Surgery Name Role Phone Gigi Kern MD Primary Care Provider [phone] Reason for Visit * Reason Onset Date Comments Recurrent Vaginal Infection 03/16/2021 Encounter Details Date Type Department Care Team (Late st Contact Info) Description 03/16/2021 Telephone [facility] [address] [place] [address] Elizabeth Bateman MD Need new address Recurrent Vaginal Infection Social History Tobacco Use Types Packs/Day Years Used Date Smoking Tobacco: Every Day Cigarettes Smokeless Tobacco: Never Alcohol Use Standard Drinks/Week Comments Yes 0 (1 standard drink = 0.6 oz pur e alcohol) Sex and Gender Information Value Date Recorded Sex Assigned at Not on file Gender Identity Not on file Sexual Orientation Not on file documented as of this encounter Miscellaneous Notes * Telephone Encounter - Arlin Rodriguez - 03/16/2021 8:34 AM CDT Pt called in with vaginal infection. Pt stated that her urine is cloudy and possibly is tinged withblood. Pt can be reached at [phone]. documented in this encounter Plan of Treatment Not on file documented as of this encounter Visit Diagnoses Not on filedocumented in this encounter Care Teams Assistant Professor Of Surgery Relationship Specialty Start Date End Date Gigi Kern MD [address] [place] [address] PCP - General 11/07/18 documented as of this encounter
--- OUTSIDE RECORDS SUMMARY | 2024-11-29 09:57 | XMS_ITS | CONTINUITY OF CARE DOCUMENT ---
Author Name dave acosta Address Unknown Organization [facility] Address [address] [address] [facility] [address] [place] [address] Phone [phone] Care Team Providers Care Tar Heater Operator Name Role Phone Amara Lomeli MD Unavailable [phone] Amara Lomeli MD Unavailable [phone] PROBLEMS Condition Status Date Provider Notes Family History of CVA or Stroke: active Mauricio Lomeli MD Cardiovascular screening active Amara quiroga MD Syncope active Amara Lomeli MD Dizziness and lightheadedness active Sae Lomeli MD Tobacco abuse active Amara Lomeli MD Endometriosis active Amara Lomeli MD Chronic interstitial cystitis active Sae Lomeli MD ENCOUNTERS Date Type Provider Location Encounter Diag nosis - In-person encounter Office Visit Amara Lomeli MD [place] [facility] - In-person encounter Office Visit Amara Lomeli MD [place] [facility] - In-person encounter Office Visit Amara Lomeli MD [place] [facility] - In-person encounter Office Visit Amara Lomeli MD [place] [facility] - In-person encounter Office Visit Amara Lomeli MD [place] [facility] Family History of CVA or Stroke:Cardiovascular screeningSyncopeDizziness and lightheadednessTobacco abuseEndometriosisChronic interstitial cystitis VITAL SIGNS Date Observation Value Provider Body Mass Index (Ratio) 20.01 kg/m2 Og Pena blood pressure, diastolic 70 mm[Hg] Iwona nkLogic blood pressure, systolic 104 mm[Hg] Willa kLogic pulse rate 90 /min Yovani y blood pressure, cuff size regular Ja rret blood pressure, diastolic 70 mm[Hg] Ja rret blood pressure, systolic 104 mm[Hg] Jar ret oxygen saturation, oximetry 98 % respiratory rate E&M 14 /min Yovani weight E&M 113 [lb_av] Yovani y height E&M 63 [in_i] Yovani y Body Mass Index (Ratio) 21.79 kg/m2 Paco Francisco blood pressure, cuff size regular Ke rri Gruenenfelder blood pressure, diastolic 70 mm[Hg] Ke rri Gruenenfelder blood pressure, systolic 102 mm[Hg] Kate ri Gruenenfelder oxygen saturation, oximetry 94 % Karina Gruenenfelder respiratory rate E&M 14 /min Karina G ruenenfelder pulse rate 100 /min Karina Gruenenfe lder weight E&M 123 [lb_av] Karina Gruenenfe lder height E&M 63 [in_i] Karina Gruenenfe lder Body Mass Index (Ratio) 23.73 kg/m2 Carmen Cochran blood pressure, diastolic 76 mm[Hg] Li nkLogic blood pressure, systolic 101 mm[Hg] Willa Valdez blood pressure, cuff size regular Lauren Gregory blood pressure, diastolic 76 mm[Hg] Lauren Gregory blood pressure, systolic 101 mm[Hg] Marvin Gregory oxygen saturation, oximetry 98 % Tod Gregory respiratory rate E&M 16 /min Harika Gregory pulse rate 78 /min Tod vincent weight E&M 134 [lb_av] Tod vincent height E&M 63 [in_i] Tod vincent Body Mass Index (Ratio) 23.20 kg/m2 Carmen Cochran blood pressure, diastolic 72 mm[Hg] Iwona Velez blood pressure, systolic 100 mm[Hg] Willa [facility] blood pressure, diastolic 72 mm[Hg] Sravan Villa blood pressure, systolic 100 mm[Hg] Rho tiarrashay Villa oxygen saturation, oximetry 96 % Susan Villa pulse rate 82 /min Susanshay Villa weight E&M 131 [lb_av] Susanmelly Villa respiratory rate E&M 18 /min Susan Villa blood pressure, resting No Rhon gallo Villa blood pressure, cuff size regular Rh ongallo Daisy height E&M 63 [in_i] Susan Villa Body Mass Index (Ratio) 23.03 kg/m2 Nguyen Lomeli MD blood pressure, diastolic, standing 78 mm [Hg] Amara Lomeli MD blood pressure, systolic, standing 110 mm [Hg] Amara Lomeli MD blood pressure, diastolic, sitting 72 mm[ Hg] Amara Lomeli MD blood pressure, systolic, sitting 112 mm[ Hg] Amara Lomeli MD blood pressure, diastolic 86 mm[Hg] Iwona corralLogjaron blood pressure, systolic 110 mm[Hg] Willa kLogic weight E&M 130 [lb_av] Ana Barrby height E&M 63 [in_i] Ana Barrby blood pressure, diastolic 86 mm[Hg] Dante galety [place] blood pressure, systolic 110 mm[Hg] Ruperto Barrby blood pressure, resting No Pablo ty Adele respiratory rate E&M 18 /min Ana Barrby pulse rate 95 /min Ana Barrby oxygen saturation, oximetry 97 % Ana Adele ALLERGIES Allergy Name Onset Date Reaction Criticality Status SULFA Low Criticality active HISTORY OF MEDICATION USE Medication Status Instructions Dates Provider Indications Com ments heparin (porcine) 10,000 unit/mL solution completed 1 ML BY INTRAVESICAL ROUTE TWO TIMES A WEEK MIX WITH BUPIVACAINE. INSERT PER URETHRAL CATHETER WEEKLY DIRECTED. REASONS CHRONIC BLADDER W - Yovani EstroGel 1.25 gram/actuation gel in metered-dose pump active APPLY EXTERNALLY TO SPECIFIC AREA OF SKIN EVERY DAY Ana Angulo cyclobenzaprine 10 mg tablet active TAKE 1 TABLET BY MOUTH AT BEDTIME Ana Angulo amitriptyline 10 mg tablet completed - Manda Bowman [facility] progesterone micronized 100 mg capsule active Take 1 capsule by mouth once a day Yovani bupivacaine HCl 0.5% (5 mg/mL) solution completed - Yovani valacyclovir 500 mg tablet active TAKE 1 TABLET BY MOUTH EVERY DAY Ana Angulo estrogens-methylte stosterone 0.625-1.25 mg tablet completed - Manda TRANP SOCIAL HISTORY Date Observation Value Provider personal history of marijuana use no Manda FELTON drug use no Manda Ventimig zev EDUCATIONAL ADMINISTRATOR alcohol use, average drinks per day social Manda Ventimiglia EDUCATIONAL ADMINISTRATOR alcohol use yes Manda Ventimig zev EDUCATIONAL ADMINISTRATOR smoking history, tot al pack/day .5 PK QD Manda Ventimiglia EDUCATIONAL ADMINISTRATOR cigarette use yes Manda Ventimi glia EDUCATIONAL ADMINISTRATOR smoking status Current every da y smoker Manda Ventimiglia EDUCATIONAL ADMINISTRATOR alcohol use, average drinks per day social Manda Ventimiglia EDUCATIONAL ADMINISTRATOR drug use no Manda Ventimig zev EDUCATIONAL ADMINISTRATOR alcohol use yes Manda Ventimig zev EDUCATIONAL ADMINISTRATOR Exercise counseling yes Karina Mcwilliams maxiethelelder smoking history, tot al pack/day .5 PK QD Karina Bendernoraer cigarette use yes Karina Beckettjanelle rascon smoking status Current every da y smoker Karina Conroyer social history reviewed E&M revi ewed - no changes required Amara Lomeli MD Exercise counseling yes Katharinejosé manuel zachary Gregory social history E&M S moking History: Thomas medina is a former smoker. Amara Lomeli MD social history reviewed E&M revi ewed - no changes required Amara Lomeli MD smoking status Former smoker Susan Daisy number of grandchildren Amara Lomeli MD drug use yes Amara Lomeli MD alcohol use no Amara Lomeli MD social history reviewed E&M revi ewed - no changes required Amara Lomeli MD smoking history, tot al pack/day .5 PK QD Ana Angulo cigarette use yes Ana Adele smoking status Former smoker Ana Adele FAMILY HISTORY Family Member Condition Paternal Grandfather Family History of C VA or Stroke: Aunt Family History of Di abetes: INSURANCE PROVIDERS Payer name Policy type / Coverage type [place] red green party ID [facility] [id number] ADVANCE DIRECTIVES Name Date DISCUSSED - NO DECISION MADE TREATMENT PLAN Date Name Performer [id number],S, Manda hendricks [facility] [id number],C,c essation encouraged. She is down to 5 cigarettes a day Manda Bowman [facility] [id number],C,h as had very limited episodes over the last year. She states improves with hydration, thus most likely secondary to dehydration. will continue to monitor Manda Bowman [facility] [id number],C,n o recurrence. EKG unchanged. Will monitor H er updated medication list for this problem includes: Heparin (porcine) 10,000 Unit/ml Solution (Heparin (porcine)) ..... 1 ml by intravesical route two times a week mix with bupivacaine. insert per urethral catheter weekly as directed. reasons chronic bladder w Manda Bowman [facility] [id number],S, C essation is strongly advised. [facility] [id number],S, O n medications [facility] [id number],C, N o further episodes of dizziness [facility] [id number],S, N o recurrence [facility] [id number],B,O nly one reported episode of dizziness. Monitor showed several incidences of sinus tachycardia, but no further episodes of syncope. If she has recurrence of syncope, she may benefit from a tilt table test. R ecommended she stay hydrated Amara Lomeli MD [id number],C,On medication s Amara Lomeli MD [id number],C,No recurrence Amara Lomeli MD [id number],S, C essation is strongly advised. Amara Lomeli MD [id number],B,O nly one reported episode of dizziness. Monitor showed several incidences of sinus tachycardia. R ecommended she stay hydrated Amara Lomeli MD [id number],C,Cessation is strongly advised. Amara Lomeli MD [id number],C,T wo weeks ago, patient had a syncopal episode and has felt lightheaded and dizzy since. She was evaluated at [facility] ED on 05/05/2021 with normal blood work. No orthostasis on seated and standing repeat BP checks today. Advised adequate hydration and monitoring the BP at home. Will check a heart monitor as well. Amara Lomeli MD Cardiology Manda Ventimiaruna cortés [facility] Cardiology:cessation encouraged. [facility] Cardiology:No recurr ent episodes N o palpitations, dizziness or chest pain P atient encouraged to remain hydrated E KG unchanged S he will return for follow up if needed. [facility] Cardiology [place] Ventimigl moo [facility] Cardiology:cessation encouraged. She is down to 5 cigarettes a day [facility] Cardiology:has had v toby limited episodes over the last year. She states improves with hydration, thus most likely secondary to dehydration. will continue to monitor [facility] Cardiology:no recurr ence. EKG unchanged. Will monitor H er updated medication list for this problem includes: Heparin (porcine) 10,000 Unit/ml Solution (Heparin (porcine)) ..... 1 ml by intravesical route two times a week mix with bupivacaine. insert per urethral catheter weekly as directed. reasons chronic bladder w Mandajulienne Bowman [facility] Cardiology: C essation is strongly advised. Kathya Cochran Cardiology: O n medications Kathya Taylorignacia Cardiology: N o further episodes of dizziness Kathya Taylorignacia Cardiology: N o recurrence Kathya Taylorignacia Cardiology:Only one reported episode of dizziness. Monitor showed several incidences of sinus tachycardia, but no further episodes of syncope. If she has recurrence of syncope, she may benefit from a tilt table test. R ecommended she stay hydrated Amara Lomeli MD Cardiology:On medications Sae Lomeli MD Cardiology:No recurrence Saul Lomeli MD Cardiology: C essation is strongly advised. Amara Lomeli MD Cardiology:Only one reported episode of dizziness. Monitor showed several incidences of sinus tachycardia. R ecommended she stay hydrated Amara Lomeli MD Cardiology:Cessation is strongly advised. Amara Lomeli MD Cardiology:Two weeks ago, patient had a syncopal episode and has felt lightheaded and dizzy since. She was evaluated at [facility] ED on 05/05/2021 with normal blood work. No orthostasis on seated and standing repeat BP checks today. Advised adequate hydration and monitoring the BP at home. Will check a heart monitor as well. Amara Lomeli MD Date Name Complete Echo Monitor - Telemetry (Mobile Cardiac) HISTORY OF PROCEDURES Procedure Date Procedure Name Provider Procedure Notes S tatus EKG Amara Lomeli MD complet ed EKG Amara Lomeli MD complet ed EKG Amara Lomeli MD complet ed Event Monitor Amara Lomeli MD comp leted EKG Amara Lomeli MD complet ed EKG Amara Lomeli MD complet ed
== END 2024-11-29 09:33 | disposition home or self-care (01) ==
LOC: ANHGOSHLAB 09:33
PROVIDERS: PCP Nurse Practitioner Family; Visit Provider Nurse Practitioner Family
DX: N30.90 Cystitis, unspecified without hematuria (principal)
CPT/HCPCS: 87086

== ENCOUNTER 2024-12-24 11:32 | Outpatient (CLI) | payer BC, SELFPAY ==
--- NOTE | ~2024-12-24 | CT_ITS ---
CT abdomen pelvis wo con Ordering provider: MARC NarvaezP-C History: 44 years Female with . looking for movement of right stone . Comparison: None. Technique: CT abdomen and pelvis without IV and without oral contrast. Automated exposure control and iterative reconstruction technique were employed. The dose-length product was 201.12 mGy-cm. Findings: VISUALIZED LOWER CHEST: Focal areas of tree-in-bud appearance in the area of the middle lobe most lik keaton post infection. UPPER ABDOMINAL ORGANS: Liver: Hepatomegaly. Gallbladder: Normal. Spleen: Normal. Stomach/duodenum: Small sliding hiatus hernia. Pancreas: Normal. Adrenals: Normal. Kidneys: 5 mm stone in the right kidney lower pole. PELVIC ORGANS: The bladder is underfilled. BOWEL AND MESENTERY: Colon: No evidence of diverticulitis. No evidence of appendicitis.. Small Bowel: Normal. No obstruction. Peritoneum/mesentery: No free air or free fluid. No mesenteric lymphadenopathy. RETROPERITONEUM: Mild atheromatous disease of the abdominal aorta. No retroperitoneal lymphadenopat hy. MUSCULOSKELETAL: Superficial soft tissues: The superficial soft tissues are normal. Bones: Normal spine. IMPRESSION: 1. No evidence of appendicitis, diverticulitis or intestinal obstruction. 2. Hepatomegaly. 3. Stone in the right kidney lower pole. Reviewed, dictated and finalized at location A.
== END 2024-12-24 11:33 | disposition home or self-care (01) ==
PROVIDERS: PCP Family Medicine; Visit Provider Nurse Practitioner Family
DX: N20.0 Calculus of kidney (principal); R16.0 Hepatomegaly, not elsewhere classified
CPT/HCPCS: 74176

== ENCOUNTER 2024-12-24 11:48 | Outpatient (NON) | payer BC, SELFPAY ==
--- OUTSIDE RECORDS SUMMARY | 2024-12-24 13:44 | XMS_ITS | CONTINUITY OF CARE DOCUMENT ---
Author Name dave acosta Address Unknown Organization [facility] Address [address] [address] [address] [facility] [address] [place] [address] Phone [phone] Care Team Providers Care [employer]smith Farm Name Role Phone Amara Lomeli MD Unavailable [phone] Amara Lomeli MD Unavailable PROBLEMS Condition Status Date Provider Notes Family [...] In-person encounter Office Visit Amara Lomeli MD [place] [facility] - In-person encounter Office Visit Amara Lomeli MD [place] [facility] - In-person encounter Office Visit Amara Lomeli MD [place] [facility] - In-person encounter Office Visit Amara Lomeli MD [place] [facility] - In-person encounter Office Visit Amara Lomeli MD [place] [facility] Family History of CVA or Stroke:Cardiovascular [...] blood pressure, systolic 100 mm[Hg] Willa [facility] blood pressure, diastolic 72 mm[Hg] [...] Body Mass Index (Ratio) 23.03 kg/m2 Nguyen Loemli MD blood pressure, diastolic, standing 78 mm [...] blood pressure, diastolic 86 mm[Hg] Dante galety [place] blood pressure, systolic 110 mm[Hg] Ruperto Barrby blood pressure, resting No Pablo ty [place] respiratory rate E&M 18 /min Ana Barrby [...] 10 mg tablet completed - Manda Bowman [facility] progesterone micronized 100 mg capsule active Take [...] FELTON drug use no Manda Ventimig zev BRASS BUFFER alcohol use, average drinks per day social Manda Ventimiglia BRASS BUFFER alcohol use yes Manda Ventimig zev BRASS BUFFER smoking history, tot al pack/day .5 PK QD Manda Ventimiglia BRASS BUFFER cigarette use yes Manda Ventimi glia BRASS BUFFER smoking status Current every da y smoker Manda Ventimiglia BRASS BUFFER alcohol use, average drinks per day social Manda Ventimiglia BRASS BUFFER drug use no Manda Ventimig zev BRASS BUFFER alcohol use yes Manda Ventimig zev BRASS BUFFER Exercise counseling yes Karina Mcwilliams maxiethelelder smoking [...] QD Ana Angulo cigarette use yes Ana [place] smoking status Former smoker Ana [place] FAMILY HISTORY Family Member Condition Paternal Grandfather Family History of C VA or Stroke: Aunt Family History of Di abetes: INSURANCE PROVIDERS Payer name Policy type / Coverage type [place] red [employer] party ID [facility] [id number] ADVANCE DIRECTIVES Name Date DISCUSSED - NO DECISION MADE TREATMENT PLAN Date Name Performer [id number],S, Manda hendricks [facility] [id number],C,c essation encouraged. She is down to 5 cigarettes a day Manda Bowman [facility] [id number],C,h as had very limited episodes over the last year. She states improves with hydration, thus most likely secondary to dehydration. will continue to monitor Manda Bowman [facility] [id number],C,n o recurrence. EKG unchanged. Will monitor H er updated medication list for this problem includes: Heparin (porcine) 10,000 Unit/ml Solution (Heparin (porcine)) ..... 1 ml by intravesical route two times a week mix with bupivacaine. insert per urethral catheter weekly as directed. reasons chronic bladder w Manda Bowman [facility] [id number],S, C essation is strongly advised. [facility] [id number],S, O n medications [facility] [id number],C, N o further episodes of dizziness [facility] [id number],S, N o recurrence [facility] [id number],B,O nly one reported episode of dizziness. Monitor showed several incidences of sinus tachycardia, but no further episodes of syncope. If she has recurrence of syncope, she may benefit from a tilt table test. R ecommended she stay hydrated Amara Lomeli MD [id number],C,On medication s Amara Lomeli MD [id number],C,No recurrence Amara Lomeli MD [id number],S, C essation is strongly advised. Amara Lomeli MD [id number],B,O nly one reported episode of dizziness. Monitor showed several incidences of sinus tachycardia. R ecommended she stay hydrated Amara Lomeli MD [id number],C,Cessation is strongly advised. Amara Lomeli MD [id number],C,T wo weeks ago, patient had a syncopal episode and has felt lightheaded and dizzy since. She was evaluated at [facility] ED on 05/05/2021 with normal blood work. No orthostasis on seated and standing repeat BP checks today. Advised adequate hydration and monitoring the BP at home. Will check a heart monitor as well. Amara Lomeli MD Cardiology Manda Ventimiaruna cortés [facility] Cardiology [facility] Cardiology:cessation encouraged. [facility] Cardiology:No recurr ent episodes N o palpitations, dizziness or chest pain P atient encouraged to remain hydrated E KG unchanged S he will return for follow up if needed. [facility] Cardiology [place] Ventimigl moo [facility] Cardiology:cessation encouraged. She is down to 5 cigarettes a day [facility] Cardiology:has had v toby limited episodes over the last year. She states improves with hydration, thus most likely secondary to dehydration. will continue to monitor [facility] Cardiology:no recurr ence. EKG unchanged. Will monitor H er updated medication list for this problem includes: Heparin (porcine) 10,000 Unit/ml Solution (Heparin (porcine)) ..... 1 ml by intravesical route two times a week mix with bupivacaine. insert per urethral catheter weekly as directed. reasons chronic bladder w Mandajulienne Bowman [facility] Cardiology: C essation is strongly advised. Kathya [...] and dizzy since. She was evaluated at [facility] ED on 05/05/2021 with normal blood [...] Amara Lomeli MD complet ed EKG Amara Lomlei MD complet ed
--- OUTSIDE RECORDS SUMMARY | 2024-12-24 13:44 | XMS_ITS | Encounter Summary ---
Author Organization [facility] Address [address] [place] [address] Care Team Providers Care Chemical Treatment Plant Technician Name Role Phone Gigi Kern MD Primary Care Provider [phone] Reason for Visit * Reason Onset Date Comments Recurrent Vaginal Infection 03/16/2021 Encounter Details Date Type Department Care Team (Late st Contact Info) Description 03/16/2021 Telephone [facility] [address] [place] [address] Elizabeth Bateman MD Need new address Recurrent Vaginal Infection Social History Tobacco Use Types Packs/Day Years Used Date Smoking Tobacco: Every Day Cigarettes Smokeless Tobacco: Never Alcohol Use Standard Drinks/Week Comments Yes 0 (1 standard drink = 0.6 oz pur e alcohol) Comments No Sex and Gender Information Value Date Recorded Sex Assigned at Not on file Legal Sex Female 9:56 AM CDT Gender Identity Not on file Sexual Orientation Not on file documented as of this encounter Miscellaneous Notes * Telephone Encounter - Arlin Rodriguez - 03/16/2021 8:34 AM CDT Pt called in with vaginal infection. Pt stated that her urine is cloudy and possibly is tinged withblood. Pt can be reached at [phone]. documented in this encounter Plan of Treatment Not on file documented as of this encounter Visit Diagnoses Not on filedocumented in this encounter Care Teams Chemical Treatment Plant Technician Relationship Specialty Start Date End Date Gigi Kern MD [address] [place] [address] PCP - General 11/07/18 documented as of this encounter
--- OUTSIDE RECORDS SUMMARY | 2024-12-24 13:44 | XMS_ITS | Clinical Summary ---
Author Organization [facility] Address [address] [place] [address] Care Team Providers Care Hairspring Setter Name Role Phone Gigi Kern MD Primary Care Provider [phone] Source Comments [facility],non-owned Affiliates and Associated Physician Practices is amultiple site organization consisting of ambulatory clinics and hospital sitesin [place], [place], [place] and [place]. This disclosure is being madepursuant to the Care Everywhere program and may not contain all information available regarding this patient. Last updated 18.[facility] Allergies Active Allergy Reactions Criticality Noted Date Comments Sulfa Drugs Rash Medium 07/23/2020 Medications * Be aware that medications may not be up to date on this document. Alwaysverify current medications with the patient. valACYclovir (VALTREX) 500 MG tablet Take 1 (one) tablet by mouth once daily 0 Active ESTROGEL 0.75 MG/1.25 GM (0.06%) gel Apply 1 applicator to affected area once daily 0 Active cyclobenzaprine (FLEXERIL) 10 MG tablet Take 1 (one) tablet by mouth at bedtime 30 tablet 2 1 Active Meth-Hyo-M Bl-Na Phos-Ph Antione (URIBEL) 118 MG Take 1 (one) capsule by mouth 3 times daily as needed 60 capsule 1 1 Active bupivacaine (MARCAINE) 0.5 % injectionIndicat ions:Chronic interstitial cystitis,Chronic pelvic pain in female by Infiltration route Two times a week Mix with Heparin. Insert via urethral catheter into bladder 1-2x/weekly as needed. 240 mL 3 1 Active Heparin Sodium, Porcine, 56805 UNIT/ML injectionIndicat ions:Interstitia l Cystitis 1 mL by Intravesical route Two times a week Mix with Bupivacaine. Insert per urethral catheter weekly as directed. Reasons: Chronic Bladder Wall Inflammation 8 vial 3 1 Active Syringe/Needle, Disp, (SYRINGE 3CC/20GX1 ) 20G X 1 3 ML MISCIndications: Interstitial Cystitis Use 1 package Two times a week Use with Heparin. Reasons: Chronic Bladder Wall Inflammation 8 Each 3 1 Active Irrigation Supplies (BARD IRRIGATION SYRINGE/BULB) MISCIndications: Chronic interstitial cystitis,Chronic pelvic pain in female 1 syringe by Intravesical route Two times a week Must connect to bladder catheter. 8 Each 3 1 Active Catheters (BARDIA URETHRAL CATHETER 14FR) MISCIndications: Chronic interstitial cystitis,Chronic pelvic pain in female 1 Units by Intravesical route Two times a week Please dispense 12 Fr. Please dispense a box in case she breaks sterile field. 8 Each 3 1 Active Lubricants (SB LUBRICATING JELLY) GELIndications:C hronic interstitial cystitis,Chronic pelvic pain in female by Intravesical route Two times a week Apply .25g to tip of catheter when self catheterizing. Must be water soluble, STERILE, and greaseless. 30 g 1 1 Active Progesterone (PROMETRIUM) 100 MG capsule Take 1 (one) capsule by mouth at bedtime 30 capsule 2 1 Active methocarbamol (Robaxin) 500 MG tablet Take 2 (two) tablets by mouth every 8 hours 120 tablet 3 Active ketorolac (Toradol) 10 MG tablet Take 1 (one) tablet by mouth every 6 hours as needed for Pain 20 tablet 3 Active Other Insert 1 suppository into the vagina every 12 hours as needed Valium/Baclofen 10/8 mg; place one suppository in the vagina as needed for pain, up to every 12 hours 30 Each 3 Active Other Insert 1 suppository into the vagina every 12 hours as needed Valium/Baclofen 5/4 mg; place one suppository in the vagina as needed for pain, up to every 12 hours 30 Each 3 Active Other Insert 1 suppository into the vagina every 12 hours as needed Valium/Baclofen 5/4 mg; place one suppository in the vagina as needed for pain, up to every 12 hours 60 Each 3 Active Active Problems No known active problems Social History Tobacco Use Types Packs/Day Years Used Date Smoking Tobacco: Every Day Cigarettes Smokeless Tobacco: Never Tobacco Cessation:Ready to Q uit: Not Asked; Counseling Given: Not Answered Alcohol Use Standard Drinks/Week Comments Yes 0 (1 standard drink = 0.6 oz pur e alcohol) PHQ-2 Answer Date Recorded PHQ2 TOTAL SCORE 1 03/03/2023 Comments No Sex and Gender Information Value [...] of 2 - PCV) 2000 COVID-19 VACCINE (1 - 2023-2 5 season) 2024 DEPRESSION SCREENING 08/29/2024 03/03/2023 INFLUENZA VACCINE (Season Ended) 2025 ZOSTER VACCINE (1 of 2) 11/25/2031 HIB [...] on patient's age to complete this topic Insurance ANTHEM ANTHEM Care Teams Hairspring Setter Relationship Specialty Start Date End Date Gigi Kern MD [address] [place] [address] PCP - General 11/07/18
== END 2024-12-24 11:49 | disposition home or self-care (01) ==
PROVIDERS: PCP Family Medicine; Visit Provider Nurse Practitioner Family
DX: R30.0 Dysuria (principal); R16.0 Hepatomegaly, not elsewhere classified; N20.0 Calculus of kidney
CPT/HCPCS: 87086

== ENCOUNTER 2025-01-29 00:43 | Day surgery (SDC) | payer BC, SELFPAY ==
--- NOTE | 2025-01-22 14:21 | PC.NURSE ---
Report to the Outpatient Waiting Room, entrance under the green pavilion located off [facility], at time _0615_ on date _[id number]_. Planned Procedure Time: _0815_.? Time changes happen often and if your time is changed the preop area will call you the afternoon before. - You and your visitor will be asked to self-screen and do not enter if you have any COVID symptoms. Please call surgeon if you need to reschedule. - A mask is optional within the hospital at this time. Patients may have clear liquids (water, carbonated beverages, clear teas, apple juice) until 3 hours prior to surgery with a maximum of 20 ounces. - No food from midnight until time of surgery and no smoking, or chewing tobacco (or any form of nicotine). No chewing gum, candy or mints. Take only the following medications with a SIP of water on the morning of surgery: __None___ DO NOT STOP ANY OF YOUR OTHER PRESCRIPTION MEDICATIONS PRIOR TO SURGERY EXCEPT THE FOLLOWING Hold all vitamins and supplements for 3 days per anesthesiologist. Medications to discontinue per physician Date to take last dose Please no make-up, nail english, hairspray, perfume, deodorant, or body powder the day of surgery.? No jewelry (including any body piercings) or valuables the day of surgery, leave them at home.? Please take a shower or bath the night before, or the morning of, surgery with an antibacterial soap.? Wear comfortable, loose fitting clothing. - Jewelry must be removed prior to entering the operating room.? Rings and piercings that are not removed may be cut off. - The hospital will not accept responsibility for valuables.? - Please leave all valuables, including medications, at home the day of surgery. If you are going home after surgery, a licensed tour driver must drive you home.? - NO public transportation without another adult if you receive anesthesia. - We recommend that an adult stay with you for 24 hours following discharge. - We also recommend that you do not drive, make important decision, drink alcoholic beverages, or take any drugs that were not prescribed by your health care provider for at least 24 hours after your discharge time. Follow any additional instructions given to you from your surgeon. Telephone instructions given to __November___and asked if any additional questions and then verbalized understanding. Patient advised to call surgeon office or pre surgery nurse liaison [phone] if any additional questions.
[2025-01-29] VITALS (7 sets, daily range): BP systolic 102–134; BP diastolic 62–95; PULSE 66–84; RESP 12–18; TEMP 36.7–36.9; O2SAT 97–100
--- NOTE | ~2025-01-29 | XR_ITS ---
EXAMINATION: XR retrograde pyelo w/stent RT DATE: 01/29/2025 09:37 INDICATION: Right internal ureteral stent placement TECHNIQUE: Fluoroscopic images from a right internal ureteral stent placement are submitted for dianelys maldonado 34 seconds of fluoroscopy time. FINDINGS: There is a right double-J internal ureteral stent projecting in expected position, with proximal [place] loop at the level of the renal pelvis and distal loop in the pelvis within the bladder lumen. IMPRESSION: 1. Right internal ureteral stent placement. Please refer to real-time procedural findings for detai ls. Reviewed, dictated and finalized at location A. IMPRESSION: 1. Right internal ureteral stent placement. Please refer to real-time procedu ral findings for details.
--- OUTSIDE RECORDS SUMMARY | 2025-01-29 00:45 | XMS_ITS | Encounter Summary ---
Author Organization [facility] Address [address] [place] [address] Care Team Providers Care Bronze Chaser Name Role Phone Gigi Kern MD Primary Care Provider Reason for Visit * Reason Onset Date Comments Recurrent Vaginal Infection 03/16/2021 Encounter Details Date Type Department Care Team (Late st Contact Info) Description 03/16/2021 Telephone [facility] [address] [place] [address] Elizabeth Bateman MD Need new address Recurrent [...] tinged withblood. Pt can be reached at [phone]. documented in this encounter Plan of Treatment Not on file documented as of this encounter Visit Diagnoses Not on filedocumented in this encounter Care Teams Bronze Chaser Relationship Specialty Start Date End Date Gigi Kern MD [address] [place] [address] PCP - General 11/07/18 documented as of this encounter
--- OUTSIDE RECORDS SUMMARY | 2025-01-29 00:45 | XMS_ITS | Clinical Summary ---
Author Organization [facility] Address [address] [place] [address] Care Team Providers Care Panelbeater Name Role Phone Gigi Kern MD Primary Care Provider [phone] Source Comments [facility],non-owned Affiliates and Associated Physician Practices is amultiple site organization consisting of ambulatory clinics and hospital sitesin [place], [place], [place] and [place]. This disclosure is being madepursuant to the Care Everywhere program and may not contain all information available regarding this patient. Last updated 18.[facility] Allergies Active Allergy Reactions Criticality Noted Date [...] mL 3 1 Active Heparin Sodium, Porcine, 49377 UNIT/ML injectionIndicat ions:Interstitia l Cystitis 1 mL by Intravesical route Two times a week Mix with Bupivacaine. Insert per urethral catheter weekly as directed. Reasons: Chronic Bladder Wall Inflammation 8 vial 3 1 Active Syringe/Needle, Disp, (SYRINGE 3CC/20GX1) 20G X 1 3 ML MISCIndications: Interstitial [...] 8:29 AM CDT Height 160 cm (5' 3) 03/03/2023 8:29 AM CDT Body Mass Index [...] this topic Insurance ANTHEM ANTHEM Care Teams Panelbeater Relationship Specialty Start Date End Date Gigi Kern MD [address] [place] [address] PCP - General 11/07/18
--- OUTSIDE RECORDS SUMMARY | 2025-01-29 00:45 | XMS_ITS | CONTINUITY OF CARE DOCUMENT ---
Author Name dave acosta Address Unknown Organization [facility] Address [address] [place] [address] Phone [phone] Care Team Providers Care Research Laboratory Technician Name Role Phone Amara Lomeli MD Unavailable Amara Lomeli MD Unavailable PROBLEMS Condition Status Date Provider Notes Family History of CVA or Stroke: active Mauricio Lomeli MD Cardiovascular screening active Amara quiroga MD Syncope active Amara Lomeli MD Dizziness and lightheadedness active Sae Lomeli MD Tobacco abuse active Amara Lomeli MD Endometriosis active Amara Lomeli MD Chronic interstitial cystitis active Sae Lomeli MD Cardiology examination active Amara english MD Nephrolithiasis active Amara Lomeli MD Tachycardia active Amara Lomeli MD ENCOUNTERS Date Type Provider Location Encounter Diag nosis - In-person encounter Office Visit Amara Lomeli MD [place] Cardiology examinationNephrolithiasisTachycardia - In-person encounter Office Visit Amara Lomeli MD [place] - In-person encounter Office Visit Amara Lomeli MD [place] - In-person encounter Office Visit Amara Lomeli MD [place] - In-person encounter Office Visit Amara Lomeli MD [place] - In-person encounter Office Visit Amara Lomeli MD [place] Family History of CVA or Stroke:Cardiovascular screeningSyncopeDizziness and lightheadednessTobacco abuseEndometriosisChronic interstitial cystitis VITAL SIGNS Date Observation Value Provider Body Mass Index (Ratio) 21.01 kg/m2 Nguyen Lomeli MD blood pressure, diastolic 84 mm[Hg] [facility], systolic 107 mm[Hg] Willa [facility] oxygen saturation, oximetry 97 % Mariposa Gu pulse rate 93 /min Mariposa Gu blood pressure, diastolic 84 mm[Hg] Ari Gu blood pressure, systolic 107 mm[Hg] Deborah Gu respiratory rate E&M 18 /min Mariposa Gu weight E&M 118.6 [lb_av] Mariposa Gu blood pressure, cuff size regular Ari Gu height E&M 63 [in_i] Mariposa Gu Body Mass Index (Ratio) 20.01 kg/m2 Og regan Becky blood pressure, diastolic 70 mm[Hg] Iwona nkLog blood pressure, systolic 104 mm[Hg] Willa kLog pulse rate 90 /min Yovani y blood pressure, cuff size regular Oscar rret blood pressure, diastolic 70 mm[Hg] Ja rret blood pressure, systolic 104 mm[Hg] Jar ret oxygen saturation, oximetry 98 % Yovani respiratory rate E&M 14 /min Yovani weight E&M 113 [lb_av] Yovani y height E&M 63 [in_i] Yovani da y Body Mass Index (Ratio) 21.79 kg/m2 Paco prasanth Francisco blood pressure, cuff size regular Ke rri Gruenenfelder blood pressure, diastolic 70 mm[Hg] Ke rri Gruenenfelder blood pressure, systolic 102 mm[Hg] Kate ri Sujitnfelder oxygen saturation, oximetry 94 % Karina Napoleonelder respiratory rate E&M 14 /min Karina Nela youngelder pulse rate 100 /min Karina Grhunternfe lder weight E&M 123 [lb_av] Karina Grdougnenfe lder height E&M 63 [in_i] Karina Jennifernenfe lder Body Mass Index (Ratio) 23.73 kg/m2 Carmen Cochran blood pressure, diastolic 76 mm[Hg] Iwona nkLogjaron blood pressure, systolic 101 mm[Hg] Willa Cotaogjaron blood pressure, cuff size regular Lauren Gregory blood pressure, diastolic 76 mm[Hg] Lauren Gregory blood pressure, systolic 101 mm[Hg] Marvin Gregory oxygen saturation, oximetry 98 % Tod Gregory respiratory rate E&M 16 /min Harika Gregory pulse rate 78 /min Katharinejosé manuelzachary vincent weight E&M 134 [lb_av] Tod vincent height E&M 63 [in_i] Tod vincent Body Mass Index (Ratio) 23.20 kg/m2 Carmen Cochran blood pressure, diastolic 72 mm[Hg] Iwona corralLog blood pressure, systolic 100 mm[Hg] Willa [facility] blood pressure, diastolic 72 mm[Hg] Rh ongallo Daisy blood pressure, systolic 100 mm[Hg] Rho melly Daisy oxygen saturation, oximetry 96 % Susan Daisy pulse rate 82 /min Susan Daisy weight E&M 131 [lb_av] Susan Daisy respiratory rate E&M 18 /min Susan Daisy blood pressure, resting No Rhon da Daisy blood pressure, cuff size regular Rh kam Daisy height E&M 63 [in_i] Susanshay Villa Body Mass Index (Ratio) 23.03 kg/m2 Nguyen Lomeli MD blood pressure, diastolic, standing 78 mm [Hg] Amara Lomeli MD blood pressure, systolic, standing 110 mm [Hg] Amara Lomeli MD blood pressure, diastolic, sitting 72 mm[ Hg] Amara Lomeli MD blood pressure, systolic, sitting 112 mm[ Hg] Amara Lomeli MD blood pressure, diastolic 86 mm[Hg] [facility], systolic 110 mm[Hg] Willa [facility] weight E&M 130 [lb_av] Ana [place] height E&M 63 [in_i] Ana Adele blood pressure, diastolic 86 mm[Hg] Kr isty Adele blood pressure, systolic 110 mm[Hg] Kri sty [place] blood pressure, resting No Pablo ceron [place] respiratory rate E&M 18 /min Ana Adele pulse rate 95 /min Ana Adele oxygen saturation, oximetry 97 % Ana [place] ALLERGIES Allergy Name Onset Date Reaction Criticality Status SULFA Low Criticality active HISTORY OF MEDICATION USE Medication Status Instructions Dates Provider Indications Com ments metoprolol succinate 25 mg tablet extended release 24 hr active TAKE 1/2 TABLET BY MOUTH EVERY DAY Amara Lomeli MD heparin (porcine) 10,000 unit/mL solution completed 1 ML BY INTRAVESICAL ROUTE TWO TIMES A WEEK MIX WITH BUPIVACAINE. INSERT PER URETHRAL CATHETER WEEKLY DIRECTED. REASONS CHRONIC BLADDER W - [facility] EstroGel 1.25 gram/actuation gel in metered-dose pump active APPLY EXTERNALLY TO SPECIFIC AREA OF SKIN EVERY DAY Ana Angulo cyclobenzaprine 10 mg tablet active TAKE 1 TABLET BY MOUTH AT BEDTIME Ana Angulo amitriptyline 10 mg tablet completed - Manda Ventimiglia [facility] progesterone micronized 100 mg capsule active Take 1 capsule by mouth once a day [facility] bupivacaine HCl 0.5% (5 mg/mL) solution completed - [facility] valacyclovir 500 mg tablet active TAKE 1 TABLET BY MOUTH EVERY DAY Ana Angulo estrogens-methylte stosterone 0.625-1.25 mg tablet completed - Mandajulienne Camachomiglmoo [facility] SOCIAL HISTORY Date Observation Value Provider personal history of marijuana use no Amara Lomeli MD drug use no Amara Lomeli MD alcohol use, average drinks per day social Amara Lomeli MD alcohol use yes Amara Lomeli MD smoking history, tot al pack/day .5 PK QD Amara Lomeli MD cigarette use yes Amara Lomeli MD smoking status Current every da y smoker Amara Lomeli MD personal history of marijuana use no Manda Camachomiglia PROCESSING MGR drug use no Manda Camposg zev PROCESSING MGR alcohol use, average drinks per day social Mandajulienne Camachomiglmoo [facility] alcohol use yes Manda Ventimig zev PROCESSING MGR smoking history, tot al pack/day .5 PK QD Manda Ventimiglia PROCESSING MGR cigarette use yes Manda Ventimi glia PROCESSING MGR smoking status Current every da y smoker Manda Ventimiglia PROCESSING MGR alcohol use, average drinks per day social Manda Ventimiglia PROCESSING MGR drug use no Manda Ventimig zev PROCESSING MGR alcohol use yes Manda Ventimig zev PROCESSING MGR Exercise counseling yes Karina smith smoking history, tot al pack/day .5 PK QD Karina Najera cigarette use yes Karina Bender elder smoking status Current every da y smoker Karina Najera social history reviewed E&M revi ewed - [...] QD Ana Angulo cigarette use yes Ana Angulo smoking status Former smoker Ana Angulo FAMILY HISTORY Family Member Condition Paternal Grandfather Family History of C VA or Stroke: Aunt Family History of Di abetes: INSURANCE PROVIDERS Payer name Policy type / Coverage type [place] red libertarian ID [facility] [id number] ADVANCE DIRECTIVES Name Date DISCUSSED - NO DECISION MADE TREATMENT PLAN Date Name Performer [id number],S, Manda hendricks [facility] [id number],C,c essation encouraged. She is down to 5 cigarettes a day Manda Bowman [facility] [id number],C,h as had very limited episodes over the last year. She states improves with hydration, thus most likely secondary to dehydration. will continue to monitor Manda Bowman [facility] [id number],C,n o recurrence. EKG unchanged. Will monitor H er updated medication list for this problem includes: Heparin (porcine) 10,000 Unit/ml Solution (Heparin (porcine)) ..... 1 ml by intravesical route two times a week mix with bupivacaine. insert per urethral catheter weekly as directed. reasons chronic bladder w Manda Bowman [facility] [id number],S, C essation is strongly advised. [facility] [id number],S, O n medications Kathya [facility] [id number],C, N o further episodes of dizziness Kathya [facility] [id number],S, N o recurrence [facility] [id number],B,O nly one reported episode of dizziness. Monitor showed several incidences of sinus tachycardia, but no further episodes of syncope. If she has recurrence of syncope, she may benefit from a tilt table test. R ecommended she stay hydrated Amara Lomeli MD [id number],C,On medication s Amara Lomeli MD [id number],C,No recurrence Amara Lomeli MD [id number],S, C essation is strongly advised. Amara Lomeli MD [id number],B,O nly one reported episode of dizziness. Monitor showed several incidences of sinus tachycardia. R ecommended she stay hydrated Amara Lomeli MD [id number],C,Cessation is strongly advised. Amara Lomeli MD [id number],C,T wo weeks ago, patient had a syncopal episode and has felt lightheaded and dizzy since. She was evaluated at [facility] ED on 05/05/2021 with normal blood work. No orthostasis on seated and standing repeat BP checks today. Advised adequate hydration and monitoring the BP at home. Will check a heart monitor as well. Amara Lomeli MD Cardiology:This visi t has been a part of the consistent, comprehensive, and ongoing management of the chronic medical condition(s) listed above for the patient. Amara Lomeli MD Cardiology:The Patie nt was reencouraged to stop smoking. T his visit has been a part of the consistent, comprehensive, and ongoing management of the chronic medical condition(s) listed above for the patient. Amara Lomeli MD Cardiology:Recommend a BB, trial metoprolol succinate prior to surgery as she has some anxiety particularly surrounding her health R ecommend maintaining adequate hydration Amara Lomeli MD Cardiology:Planning to undergo surgical removal of her renal stones. She may do this at acceptable risk. She has no Sx of SOB or chest pain and has overall been feeling well. Amara Lomeli MD Cardiology Manda Ventimigl ia [facility] Cardiology Manda Ventimigl ia [facility] Cardiology:cessation encouraged. Manda Bowman [facility] Cardiology:No recurr ent episodes N o palpitations, dizziness or chest pain P atient encouraged to remain hydrated E KG unchanged S he will return for follow up if needed. Manda Camachomiglmoo [facility] Cardiology Manda Ventimigl ia [facility] Cardiology:cessation encouraged. She is down to 5 cigarettes a day Manda Bowman [facility] Cardiology:has had v toby limited episodes over the last year. She states improves with hydration, thus most likely secondary to dehydration. will continue to monitor Manda Bowman [facility] Cardiology:no recurr ence. EKG unchanged. Will monitor H er updated medication list for this problem includes: Heparin (porcine) 10,000 Unit/ml Solution (Heparin (porcine)) ..... 1 ml by intravesical route two times a week mix with bupivacaine. insert per urethral catheter weekly as directed. reasons chronic bladder w Manda Bowman [facility] Cardiology: C essation is strongly advised. Kathya Cochran Cardiology: O n medications Kathya Taylornemartín Cardiology: N o further episodes of dizziness Kathya Cochran Cardiology: N o recurrence Kathya Cochran Cardiology:Only one reported episode of dizziness. Monitor [...] and dizzy since. She was evaluated at [facility] ED on 05/05/2021 with normal blood work. No orthostasis on seated and standing repeat BP checks today. Advised adequate hydration and monitoring the BP at home. Will check a heart monitor as well. Amara Lomeli MD Date Name EKG Complete Echo Monitor - Telemetry (Mobile Cardiac) HISTORY OF PROCEDURES Procedure Date Procedure Name Provider Procedure Notes S tatus Complex e/m visit add on Amara Lomeli MD completed EKG Amara Lomeli MD complet ed EKG Amara Lomeli MD complet ed EKG Amara Lomeli MD complet ed Event Monitor Amara Lomeli MD comp leted EKG Amara Lomeli MD complet ed EKG Amara Lomeli MD complet ed
--- NOTE | 2025-01-29 07:05 | P.PNAN_ITS ---
Anes - Initial Pre Proc Eval Procedure: Operation Date: 01/29/25 08:15 Proposed Procedures p Cystoscopy Right Ureteroscopy, Right Retrograde Pyelogram, Holmium Laser Lithotripsy, Right Stone Extraction, Right Stent Placement - Travon Jewell MD Date/Time: 01/29/25 07:05 Surgeon: Travon Jewell MD Pre Op Diagnosis: rt kidney stone Patient Data Age: 44 Gender: F Height: 1.61 m Weight: 52.3 kg Allergies Allergy/AdvReac Type Severity Reaction Status Date / Time Sulfa (Sulfonamide Allergy Unknown Rash Verified 01/22/25 14:10 Antibiotics) Home Medications ?Medication ?Instructions ?Recorded ?Confirmed ?Type cyclobenzaprine 10 mg tablet 10 mg PO TID PRN Spasms 06/19/19 01/22/25 History valacyclovir 500 mg tablet 500 mg PO DAILY 06/19/19 01/22/25 History estradiol 1.25 gram/actuation 1.25 g topical DAILY 08/10/21 01/22/25 History (0.06%) transdermal gel pump (EstroGel) progesterone micronized 100 mg 100 mg PO DAILY 08/10/21 01/22/25 History capsule hydrocodone 5 mg-acetaminophen 325 1 tablet PO Q8H PRN pain 01/22/25 01/22/25 History mg tablet Patient hx anesthesia problems: none Family hx anesthesia problems: none Results Review: All pre-operative results and documents have been reviewed as part of the pre- operative evaluation. [facility] Past Medical History Medical History Chronic narcotic use Endometriosis Ventral hernia without obstruction or gangrene Tobacco abuse History of kidney stones GERD (gastroesophageal reflux disease) Migraine Surgical History Surgical History H/O ventral hernia repair 08/17/21 H/O: hysterectomy Hx of nephrolithotomy with removal of calculi Apr 2019, June 2019 Endometriosis determined by laparoscopy Laparoscopic destruction of endometriosis. History of bilateral salpingo-oophorectomy 01/2020 Family History Family History Grandparent Diabetes mellitus Heart disease Family history of hypertension Family history of stroke Father Osteoporosis Mother Osteoporosis Social History Social History Smoking packs per day: 0.5 Smoking cigarettes per day: 10.0 Years smoked: 20 Smoking pack-years: 10.00 Smoking status: Current every day smoker Tobacco type: cigarettes Alcohol intake: current Alcohol use details: Rarely Living arrangements: with family Additional living arrangements comments: Patient lives at home with her and two children, ages 5&9. 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 Informed Consent: The patient's anesthetic plan and its attendant risks and benefits were discussed with the patient/family/POA. Questions were solicited and answers provided to the satisfaction of the patient/family/POA.
[2025-01-29] MEDS: LACTATED RINGERS 1,000 ML 30 ML IV CONT (07:10)
--- NOTE | 2025-01-29 07:24 | WPDHPUPDATE1 ---
History and Physical Update Update Date/Time: 01/29/25 07:24 History and Physical has been reviewed, including an updated exam of the patient. There are NO changes in the patient's condition. Risks, benefits, and alternatives have been discussed and questions answered. Patient agrees to proceed with procedure. Proceed with cystoscopy, right retrograde, right ureteroscopy , possible laser, stent placement
[2025-01-29] MEDS: ceFAZolin 2 GM/D5W 50 ML 2 GM/50 ML BAG IVPB (08:35)
[2025-01-29] MEDS: LIDOCAINE 2% GEL UROJET 10 ML PKG MUCOUS MEM (08:55)
--- NOTE | 2025-01-29 09:31 | S_PTH ---
PATIENT: BradenNovember LOC: [facility] U#:[id number] AGE/SX: 44/F ROOM: RE01/29/[address]: Travon Jewell, : 1980 BED: DIS: 01/29/2025 SPEC #: [id number] RECD: 01/29/25 11:06 STATUS: CURRY REDelmis #: [id number] RY: 01/29/25 09:[address]: Fanta,Travon Trevino DEPT: [facility] Surgical RECD BY: Rosanna Benjamin ENTERED: 01/29/25 11:07 SP TYPE: Surgical OTHR DR: Mary Anne Hayes, LORELEI Tissues: A - Stone Procedures: Gross Exam Level 1 Crystalline Analysis
--- NOTE | 2025-01-29 09:34 | P.OP_ITS ---
Procedure Note - Detailed Date of Procedure 01/29/25 Pre-op Diagnosis rt kidney stone Post-op Diagnosis Same Procedure Performed Urethral dilation, cystoscopy, right ureteroscopy with holmium laser, stone extraction, right ureteral stent placement 4.8 [place] contour Surgeon Travon Jewell MD Anesthesia General Description of Procedure Patient was taken to the operative suite correctly identified. Once anesthesia was obtained was placed in dorsal lithotomy position and prepped and draped in usual sterile fashion. Urethra would not take a 22 [place] scope. Thus dilated using female sounds up to 24 [place]. The cystoscope was inserted the bladder. There were no tumors. The right ureteral orifice was cannulated with a guidewire. Ureteral access sheath was placed mini flexible ureteral scope was inserted up into the kidney. Pyelogram was then performed to delineate the anatomy. Patient had very prominent papilla and the calices. There I was able to manipulate the scope proceed with some difficulty to a middle pole calyx where the stone was located. Using 200 micron fiber I lasered and dusted the stone. The larger fragments were retrieved using a ZeroTip basket and sent for analysis. Reinspection revealed no significant stone burden. 4.8 [place] contour stent was then placed with the proximal end coiled in the renal pelvis and the distal end in the bladder. Bladder was drained. 2% viscous lidocaine was inserted into the urethra patient is taken recovery stable condition. She will follow-up in a week's time 1st. This completes dictation. Please send a copy of to my office. Estimated Blood Loss 0 Drains Yes Packing No Pathology Yes Complications No immediate complications Condition Stable Disposition PACU
== END 2025-01-29 10:59 | disposition home or self-care (01) ==
PROVIDERS: PCP Nurse Practitioner Family; Visit Provider Urology
PROC: (CPT 52352; principal; 2025-01-29 08:15)
DX: N20.0 Calculus of kidney (principal); K21.9 Gastro-esophageal reflux disease without esophagitis; D64.9 Anemia, unspecified; N80.9 Endometriosis, unspecified; N32.81 Overactive bladder; N39.3 Stress incontinence (female) (male); F17.210 Nicotine dependence, cigarettes, uncomplicated; Z79.891 Long term (current) use of opiate analgesic; Z98.890 Other specified postprocedural states; Z82.49 Family history of ischemic heart disease and other diseases of the circulatory system
CPT/HCPCS: 52356; 36415; 74177; 74420; 80053; 81001; 82365; 83690; 85025; 85055; 87086; 88300; 93976; 96361; 96374; 96375; 99284; A9270; C1758; C1769; C2617; J0690; J1100; J2003; J2250; J2270; J2371; J2405; J2704; J3010; J7030; J7120; Q9966; Q9967

== ENCOUNTER 2025-01-29 14:59 | Emergency (ER) | payer BC, SELFPAY ==
--- NOTE | ~2025-01-29 | CT_ITS ---
CT abdomen pelvis w con Ordering provider: Lesli Patricia PA-C History: 44 years Female with . abd pain, vomiting, recent stent placement . Comparison: December 24, 2024 Technique: CT abdomen and pelvis with IV and without oral contrast. Automated exposure control and it erative reconstruction technique were employed. The dose-length product was 210.34 mGy-cm. 100 mL Omn ipaque 350 was given IV. Findings: VISUALIZED LOWER CHEST: Bilateral tree-in-bud appearance is seen suggestive of post infection changes . Follow-up advised. UPPER ABDOMINAL ORGANS: Liver: Hepatomegaly. Slightly hyperdense appearance of the hepatic veins with surrounding minimal david ma. Possibility of thrombosis cannot be excluded although this can be due to improper phase of contra st opacification.. Gallbladder: Normal. Spleen: Normal. Stomach/duodenum: Normal. Pancreas: Normal. Slightly prominent pancreatic duct. Follow-up advised. Adrenals: Normal. Kidneys: Tiny stones in the right kidney lower pole. Right double-J stent. PELVIC ORGANS: The bladder is normal. BOWEL AND MESENTERY: Colon: No evidence of diverticulitis. Normal appendix. Small Bowel: Normal. No obstruction. Peritoneum/mesentery: No free air. Minimal free fluid seen in the pelvis, right paracolic gutter area and subhepatic area. No mesenteric lymphadenopathy. RETROPERITONEUM: Mild atheromatous disease of the abdominal aorta. No retroperitoneal lymphadenopat hy. MUSCULOSKELETAL: Superficial soft tissues: The superficial soft tissues are normal. Bones: Normal spine. IMPRESSION: 1. Tiny stones in the right kidney lower pole with right double-J stent. 2. Hepatomegaly with slightly hyperdense hepatic veins. Possibility of thrombosis cannot be excluded although this may be due to improper phase of the contrast. Ultrasound evaluation advised. 3. Minimal free fluid in the pelvis, right paracolic gutter and subhepatic area. Reviewed, dictated and finalized at location A. IMPRESSION: 1. Tiny stones in the right kidney lower pole with right double-J stent. 2. Hepatomegaly with slightly hyperdense hepatic veins. Possibility of thrombo sis cannot be excluded although this may be due to improper phase of the contra st. Ultrasound evaluation advised. 3. Minimal free fluid in the pelvis, right paracolic gutter and subhepatic are a.
--- NOTE | ~2025-01-29 | US_ITS ---
Hepatic and portal veins ULTRASOUND (Doppler ultrasound interrogation techniques used as needed for t his exam.) Ordering provider: Lesli Patricia PA-C History: . r/o hepatic vein thrombosis . Comparison: None. FINDINGS/impression: The hepatic and portal veins are patent. No evidence of thrombosis seen Reviewed, dictated and finalized at location A.
--- OUTSIDE RECORDS SUMMARY | 2025-01-29 15:02 | XMS_ITS | CONTINUITY OF CARE DOCUMENT ---
Author Name dave acosta Address Unknown Organization [facility] Address [address] [place] [address] Phone [phone] Care Team Providers Care Mold Chipper Name Role Phone Amara Lomeli MD Unavailable Amara Lomeli MD Unavailable [phone] PROBLEMS Condition Status Date Provider Notes Family [...] In-person encounter Office Visit Amara Lomeli MD [facility] Cardiology examinationNephrolithiasisTachycardia - In-person encounter Office Visit Amara Lomeli MD [facility] - In-person encounter Office Visit Amara Lomeli MD [facility] - In-person encounter Office Visit Amara Lomeli MD [facility] - In-person encounter Office Visit Amara Lomeli MD [facility] - In-person encounter Office Visit Amara Lomeli MD [facility] Family History of CVA or Stroke:Cardiovascular screeningSyncopeDizziness and lightheadednessTobacco abuseEndometriosisChronic interstitial cystitis VITAL SIGNS Date Observation Value Provider Body Mass Index (Ratio) 21.01 kg/m2 Ngyuen Lomeli MD blood pressure, diastolic 84 mm[Hg] [facility], systolic 107 mm[Hg] [facility] saturation, oximetry 97 % Marip[place] Gu [...] corralLog blood pressure, systolic 100 mm[Hg] [facility] blood pressure, diastolic 72 mm[Hg] Rh ongallo [...] MD blood pressure, diastolic 86 mm[Hg] [facility], systolic 110 mm[Hg] Willa [facility] weight E&M 130 [lb_av] Ana Jasper height E&M 63 [in_i] Ana Adele blood pressure, diastolic 86 mm[Hg] Kr isty Adele blood pressure, systolic 110 mm[Hg] Kri sty Jasper blood pressure, resting No Pablo ceron Jasper respiratory rate E&M 18 /min Ana Adele pulse rate 95 /min Ana Adele oxygen saturation, oximetry 97 % Ana Jasper ALLERGIES Allergy Name Onset Date Reaction Criticality [...] WEEKLY DIRECTED. REASONS CHRONIC BLADDER W - [facility] EstroGel 1.25 gram/actuation gel in metered-dose pump active APPLY EXTERNALLY TO SPECIFIC AREA OF SKIN EVERY DAY Ana Angulo cyclobenzaprine 10 mg tablet active TAKE 1 TABLET BY MOUTH AT BEDTIME Ana Angulo amitriptyline 10 mg tablet completed - Manda Ventimiglia [facility] progesterone micronized 100 mg capsule active Take 1 capsule by mouth once a day [facility] bupivacaine HCl 0.5% (5 mg/mL) solution completed - [facility] valacyclovir 500 mg tablet active TAKE 1 TABLET BY MOUTH EVERY DAY Ana Angulo estrogens-methylte stosterone 0.625-1.25 mg tablet completed - Mandajulienne Camachomiglmoo [facility] SOCIAL HISTORY Date Observation Value Provider personal [...] history of marijuana use no Manda Camachomiglia [employer] drug use no Manda Camposg zev [employer] alcohol use, average drinks per day social Mandajulienne Camachomiglmoo [facility] alcohol use yes Manda Ventimig zev [employer] smoking history, tot al pack/day .5 PK QD Manda Ventimiglia [employer] cigarette use yes Manda Ventimi glia [employer] smoking status Current every da y smoker Manda Ventimiglia [employer] alcohol use, average drinks per day social Manda Ventimiglia [employer] drug use no Manda Ventimig zev [employer] alcohol use yes Manda Ventimig zev [employer] Exercise counseling yes Karina smith smoking history, [...] Payer name Policy type / Coverage type [place] red libertarian ID [facility] [id number] ADVANCE DIRECTIVES Name Date DISCUSSED - NO DECISION MADE TREATMENT PLAN Date Name Performer [id number],S, Manda hendricks [facility] [id number],C,c essation encouraged. She is down to 5 cigarettes a day Manda Bowman [facility] [id number],C,h as had very limited episodes over the last year. She states improves with hydration, thus most likely secondary to dehydration. will continue to monitor Manda Bowman [facility] [id number],C,n o recurrence. EKG unchanged. Will monitor H er updated medication list for this problem includes: Heparin (porcine) 10,000 Unit/ml Solution (Heparin (porcine)) ..... 1 ml by intravesical route two times a week mix with bupivacaine. insert per urethral catheter weekly as directed. reasons chronic bladder w Manda Bowman [facility] [id number],S, C essation is strongly advised. Kathyalarry [facility] [id number],S, O n medications Kathya [facility] [id number],C, N o further episodes of dizziness Kathya [facility] [id number],S, N o recurrence Kathya [facility] [id number],B,O nly one reported episode of dizziness. Monitor showed several incidences of sinus tachycardia, but no further episodes of syncope. If she has recurrence of syncope, she may benefit from a tilt table test. R ecommended she stay hydrated Amara Lomeli MD [id number],C,On medication s Amara Lomeli MD [id number],C,No recurrence Amara Lomeli MD [id number],S, C essation is strongly advised. Amara Lomeli MD [id number],B,O nly one reported episode of dizziness. Monitor showed several incidences of sinus tachycardia. R ecommended she stay hydrated Amara Lomeli MD [id number],C,Cessation is strongly advised. Amara Lomeli MD [id number],C,T wo weeks ago, patient had a syncopal episode and has felt lightheaded and dizzy since. She was evaluated at [facility] ED on 05/05/2021 with normal blood [...] Amara Lomeli MD Cardiology Manda Ventimigl ia [facility] Cardiology Manda Ventimigl ia [facility] Cardiology:cessation encouraged. Manda Bowman [facility] Cardiology:No recurr ent episodes N o palpitations, dizziness or chest pain P atient encouraged to remain hydrated E KG unchanged S he will return for follow up if needed. Manda Camachomiglmoo [facility] Cardiology Manda Ventimigl ia [facility] Cardiology:cessation encouraged. She is down to 5 cigarettes a day Manda Bowman [facility] Cardiology:has had v toby limited episodes over the last year. She states improves with hydration, thus most likely secondary to dehydration. will continue to monitor Manda Bowman [facility] Cardiology:no recurr ence. EKG unchanged. Will monitor H er updated medication list for this problem includes: Heparin (porcine) 10,000 Unit/ml Solution (Heparin (porcine)) ..... 1 ml by intravesical route two times a week mix with bupivacaine. insert per urethral catheter weekly as directed. reasons chronic bladder w Manda Bowman [facility] Cardiology: C essation is strongly advised. Kathya Cochran Cardiology: O n medications Kathya Taylornymartín Cardiology: N o further episodes of dizziness [...] and dizzy since. She was evaluated at [facility] ED on 05/05/2021 with normal blood [...]
--- OUTSIDE RECORDS SUMMARY | 2025-01-29 15:02 | XMS_ITS | Encounter Summary ---
Author Organization [facility] Address [address] [place] [address] Care Team Providers Care Sewer Digger Name Role Phone Gigi Kern MD Primary Care Provider [phone] Reason for Visit * Reason Onset Date Comments Recurrent Vaginal Infection 03/16/2021 Encounter Details Date Type Department Care Team (Late st Contact Info) Description 03/16/2021 Telephone [facility] [address] [place] [address] Elizabeth Bateman MD Need new address Recurrent [...] tinged withblood. Pt can be reached at [phone]. documented in this encounter Plan of Treatment Not on file documented as of this encounter Visit Diagnoses Not on filedocumented in this encounter Care Teams Sewer Digger Relationship Specialty Start Date End Date Gigi Kern MD [address] [place] [address] PCP - General 11/07/18 documented as of this encounter
--- OUTSIDE RECORDS SUMMARY | 2025-01-29 15:02 | XMS_ITS | Clinical Summary ---
Author Organization [facility] [employer] Address [address] [place] [address] Care Team Providers Care Rn Bone Marrow Transplant Name Role Phone Gigi Kern MD Primary Care Provider [phone] Source Comments [facility] [employer],non-owned Affiliates and Associated Physician Practices is amultiple site organization consisting of ambulatory clinics and hospital sitesin [place], [place], [place] and [place]. This disclosure is being madepursuant to the Care Everywhere program and may not contain all information available regarding this patient. Last updated 18.[facility] [employer] Allergies Active Allergy Reactions Criticality Noted Date [...] mL 3 1 Active Heparin Sodium, Porcine, 42788 UNIT/ML injectionIndicat ions:Interstitia l Cystitis 1 mL [...] this topic Insurance ANTHEM ANTHEM Care Teams Rn Bone Marrow Transplant Relationship Specialty Start Date End Date Gigi Kern MD [address] [place] [address] PCP - General 11/07/18
[2025-01-29 15:19] VITALS: BP 140/83; PULSE 47; RESP 22; O2SAT 100
--- NOTE | 2025-01-29 15:33 | ED.ABDPAIN ---
HPI - Abdominal Pain General Chief Complaint: Urogenital-Female Stated Complaint: had stents placed today, vomiting, chills Time Seen by Provider: 01/29/25 15:07 Source: patient Mode of arrival: ambulatory Limitations: no limitations History of Present Illness HPI narrative: This is a 44 year old female that presents to the ER for nausea and vomiting. Reports she had a ureteral stent placed this morning with Dr. Jewell. Reports right flank pain, lower abdominal pain. Reports chills. Reports hematuria and dysuria. Denies fevers. Related Data Home Medications ?Medication ?Instructions ?Recorded ?Confirmed ?Last Taken ?Type cyclobenzaprine 10 mg tablet 10 mg PO TID PRN Spasms 06/19/19 01/22/25 01/27/20 History valacyclovir 500 mg tablet 500 mg PO DAILY 06/19/19 01/29/25 01/28/25 History estradiol 1.25 gram/actuation 1.25 g topical DAILY 08/10/21 01/22/25 Unknown History (0.06%) transdermal gel pump (EstroGel) progesterone micronized 100 mg 100 mg PO DAILY 08/10/21 01/29/25 01/28/25 History capsule hydrocodone 5 mg-acetaminophen 325 1 tablet PO Q8H PRN pain 01/22/25 01/22/25 Unknown History mg tablet Allergies Allergy/AdvReac Type Severity Reaction Status Date / Time Sulfa (Sulfonamide Allergy Unknown Rash Verified 01/29/25 07:19 Antibiotics) Review of Systems Review of Systems: All systems reviewed & are unremarkable except as noted in HPI and below PMFSH Past Medical History Medical History (Updated 01/29/25 @ 18:26 by Lesli Patricia PA-C) Kidney stone on right side Chronic narcotic use Endometriosis Ventral hernia without obstruction or gangrene Tobacco abuse History of kidney stones GERD (gastroesophageal reflux disease) Migraine Surgical History Surgical History H/O ventral hernia repair 08/17/21 H/O: hysterectomy Hx of nephrolithotomy with removal of calculi Apr 2019, June 2019 Endometriosis determined by laparoscopy Laparoscopic destruction of endometriosis. History of bilateral salpingo-oophorectomy 01/2020 Family History Family History Grandparent Diabetes mellitus Heart disease Family history of hypertension Family history of stroke Father Osteoporosis Mother Osteoporosis Social History Social History Smoking packs per day: 0.5 Smoking cigarettes per day: 10.0 Years smoked: 20 Smoking pack-years: 10.00 Smoking status: Current every day smoker Tobacco type: cigarettes Alcohol intake: current Alcohol use details: Rarely Living arrangements: with family Additional living arrangements comments: Patient lives at home with her and two children, ages 5&9. 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 HEAD: Normocephalic, atraumatic. EYES: EOMI. ENT: Nares clear, no rhinorrhea or epistaxis. Mucous membranes moist. Oropharynx without tonsillar hypertrophy exudate or other lesions. CHEST: Clear to auscultation. No respiratory distress. No wheezes rales or rhonchi HEART: Regular rate and rhythm. No murmur heard. Normal peripheral pulses. ABDOMEN: Soft, nondistended, normal active bowel sounds. Tender to palpation in the lower abdomen, without guarding EXTREMITIES: Normal range of motion. No edema. SKIN: Warm, dry, no rash. NEURO: No focal deficits. Alert and oriented x3. PSYCH: Normal mood and affect Course Course Emergency Course: patient updated on her workup and agrees with plan of care Consultations Consultation #1: Spoke with Dr. Moseley about patient and workup who agrees with plan of care Date: 01/29/25 Vital Signs Vital signs: Vital Signs Pulse Rate 47 L 01/29/25 15:19 Respiratory Rate 22 H 01/29/25 15:19 Blood Pressure 140/83 01/29/25 15:19 Pulse Oximetry 100 01/29/25 15:19 Oxygen Delivery Room Air 01/29/25 15:19 Temperature 97.8 F 01/29/25 18:23 Pulse Rate 68 01/29/25 17:57 Respiratory Rate 16 01/29/25 17:57 Blood Pressure 98/72 L 01/29/25 17:57 Pulse Oximetry 100 01/29/25 17:57 Oxygen Delivery Room Air 01/29/25 15:19 MDM - Abdominal Pain MDM Narrative Medical decision making narrative: This is a 44 year old female that presents to the ER for flank pain, abdominal pain, vomiting. Status post ureteral stent placement this morning. Patient is afebrile and nontoxic appearing. Her vitals are stable. CBC with mild leukocytosis to 12.3. Metabolic panel normal appearing kidney function. Urine without nitrates or leuk esterase, shows greater than 100 red blood cells, [address] abdomen pelvis showed tiny stones in the right kidney, ureteral stent. Minimal free fluid in the pelvis, right pericolic gutter and subhepatic area. Hepatomegaly with slight hyperdense hepatic veins. Possibility of thrombosis cannot be excluded. Ultrasound obtained which does not show evidence of thrombosis. Spoke with Dr. Moseley about patient and workup who agrees with plan of care. patient updated on her workup and agrees with plan of care. She was given warnings to return to the ER Differential Diagnosis Differential diagnosis: Likely other (UTI, post op bleeding, ureteral stent irritation) Lab Data Attestation: I reviewed the patient's lab results. 01/29/25 15:47 01/29/25 15:47 Labs: Lab Results 01/29/25 Range/Units 15:47 WBC 12.3 H (4.5-10.0) K/mm3 RBC 4.06 L (4.2-5.4) M/mm3 Hgb 13.5 (12.0-15.0) g/dL Hct 39.7 (37.0-47.0) % MCV 97.8 (80-100) fl MCH 33.3 (26-34) pg MCHC 34.0 (32-36) g/dl RDW 12.7 (11.5-14.5) % Plt Count 257 (150-375) k/mm3 MPV 10.6 H (7.4-10.4) fl Immature Gran % (Auto) Not Reportable Neut % (Auto) Not Reportable Lymph % (Auto) Not Reportable Bartholomew % (Auto) Not Reportable Eos % (Auto) Not Reportable Baso % (Auto) Not Reportable Lymph # (Auto) Not Reportable Bartholomew # (Auto) Not Reportable Eos # (Auto) Not Reportable Baso # (Auto) Not Reportable Abs Immat Gran (auto) Not Reportable Absolute Neuts (auto) Not Reportable Absolute Nucleated RBC Not Reportable Total Counted 100 Neutrophils % (Manual) 78 H (46-73) % Band Neutrophils % 4 (0-6) % Lymphocytes % (Manual) 17.0 L (18-44) % Monocytes % (Manual) 1 L (3-9) % Nucleated RBC % Not Reportable Abs Neuts (Manual) 10.08 H (1.3-6.7) K/mm3 Abs Lymphs (Manual) 2.09 (1.1-4.5) K/mm3 Abs Monocytes (Manual) 0.12 (0.1-0.90) K/mm3 Platelet Estimate Adequate (Adequate) % Immature Plt Fraction 4.1 (0.9-11.2) % Schistocytes None seen Sodium 138 (137-145) mmol/L Potassium 3.9 (3.4-5.0) mmol/L Chloride 110 H (98-107) mmol/L Carbon Dioxide 17 L (22-30) mmol/L Anion Gap 11 (4-12) mmol/L BUN 14 (7-17) mg/dL Creatinine 0.72 (0.7-1.0) mg/dL Estim Creat Clear Calc 75 ml/min Estimated GFR > 60 (59 - ) Glucose 153 H (65-110) mg/dL Calcium 9.9 (8.4-10.2) mg/dL Total Bilirubin 0.6 (0.2-1.3) mg/dL AST 28 (14-36) U/L ALT 20 (6-35) U/L Alkaline Phosphatase 104 (38-126) U/L Total Protein 7.6 (6.3-8.2) g/dL Albumin 4.5 (3.5-5.1) g/dL Lipase 46 (23-300) U/L Urine Color Red H (Yellow) Urine Appearance Turbid H (Clear) Urine pH 8.5 (5.0-9.0) Ur Specific [place] 1.010 (1.001-1.035) Urine Protein 2+ H (Negative) mg/dL Urine Glucose (UA) Negative (Negative) mg/dL Urine Ketones 4+ H (Negative) mg/dL Ur Blood (Man) 3+ H (Negative) Urine Nitrate Negative (Negative) Urine Bilirubin Negative (Negative) Urine Urobilinogen 0.2 (<2.0) mg/dL Leukocyte Esterase Rfl Negative (Negative) YELENA/UL Urine RBC >100 H (0-2) /hpf Urine WBC 4-6 H (0-3) /hpf Urine Bacteria 2+ H (None) /hpf Imaging Data Radiologist's impression: ITS Impressions Abdomen/Pelvis CT 01/29/25 17:08 IMPRESSION: 1. Tiny stones in the right kidney lower pole with right double-J stent. 2. Hepatomegaly with slightly hyperdense hepatic veins. Possibility of thrombosis cannot be excluded although this may be due to improper phase of the contrast. Ultrasound evaluation advised. 3. Minimal free fluid in the pelvis, right paracolic gutter and subhepatic area. ITS Impressions Abdomen/Pelvis CT 01/29/25 17:08 IMPRESSION: 1. Tiny stones in the right kidney lower pole with right double-J stent. 2. Hepatomegaly with slightly hyperdense hepatic veins. Possibility of thrombosis cannot be excluded although this may be due to improper phase of the contrast. Ultrasound evaluation advised. 3. Minimal free fluid in the pelvis, right paracolic gutter and subhepatic area. Hepatic and portal vein ultrasound: FINDINGS/impression: The hepatic and portal veins are patent. No evidence of thrombosis seen Critical Care Time Critical Care Time Critical Care Time: No Discharge Plan Discharge Clinical Impression: Ureteral stent present Patient Disposition: Home Condition: Improved Instructions: Kidney Stones (ED), Ureteral Stent Placement (DC) Additional Instructions: Return to the emergency department if you experience fever, chest pain, shortness of breath, abdominal pain with nausea and vomiting, you are unable to keep down liquids or solids, or any other symptoms that are concerning to you. Remain well hydrated. Continue oral antibiotic as prescribed. Ondansetron as needed for nausea. Over the counter pain medication as needed. Prescribed pain medication as needed Follow up with your urologist. You are scheduled for follow up on the , but you may call and try to get this scheduled earlier if you continue to be uncomfortable with your stent Patient Language: Serbian Prescriptions: New ondansetron 4 mg tablet,disintegrating 4 mg PO Q8H PRN (Reason: nausea and vomiting) Qty: 14 0RF No Action cyclobenzaprine 10 mg Tablet 10 mg PO TID PRN (Reason: Spasms) valacyclovir 500 mg Tablet 500 mg PO DAILY hydrocodone-acetaminophen 5-325 mg tablet 1 tablet PO Q8H PRN (Reason: pain) tramadol 50 mg tablet 50 mg PO Q6H PRN (Reason: pain) Qty: 20 0RF oxybutynin chloride 5 mg tablet 5 mg PO BID PRN (Reason: bladder spasms) Qty: 30 0RF Rx Instructions: Take as needed for bladder spasms nitrofurantoin monohyd/m-cryst [Macrobid] 100 mg capsule 100 mg PO Q12H 3 Days Qty: 6 0RF Rx Instructions: must administer with a meal/food progesterone micronized 100 mg capsule 100 mg PO DAILY estradiol [EstroGel] 1.25 gram/actuation gel in metered-dose pump 1.25 g topical DAILY Follow-up/Referrals: Travon Jewell MD [Primary Care Provider] -
--- NOTE | 2025-01-29 15:55 | PC.NURSE ---
This RN was unable to get IV. GINO Mcdonald to bedside to attempt ultrasound IV
[2025-01-29 16:17] LABS: Hematocrit 39.7 % (37.0-47.0); Hemoglobin 13.5 g/dL (12.0-15.0); Immature Platelet Fraction Pct 4.1 % (0.9-11.2); Mean Corpuscular Hemoglobin 33.3 pg (26-34); Mean Corpuscular Volume 97.8 fl (80-100); Mean Platelet Volume 10.6 fl (7.4-10.4); Platelet Count Result 257 k/mm3 (150-375); Red Blood Count 4.06 M/mm3 (4.2-5.4); Red Cell Distribution Width 12.7 % (11.5-14.5); White Blood Count 12.3 K/mm3 (4.5-10.0)
--- OUTSIDE RECORDS SUMMARY | 2025-01-29 16:18 | XMS_ITS | Encounter Summary ---
Author Organization [facility] Address [address] [place] [address] Care Team Providers Care Clam Digger Name Role Phone Gigi Kern MD Primary Care Provider [phone] Reason for Visit * Reason Onset Date Comments Recurrent Vaginal Infection 03/16/2021 Encounter Details Date Type Department Care Team (Late st Contact Info) Description 03/16/2021 Telephone [facility] [address] [place] [address] Elizabeth Bateman MD Need new address Recurrent [...] tinged withblood. Pt can be reached at [phone]. documented in this encounter Plan of Treatment Not on file documented as of this encounter Visit Diagnoses Not on filedocumented in this encounter Care Teams Clam Digger Relationship Specialty Start Date End Date Gigi Kern MD [address] [place] [address] PCP - General 11/07/18 documented as of this encounter
--- OUTSIDE RECORDS SUMMARY | 2025-01-29 16:18 | XMS_ITS | CONTINUITY OF CARE DOCUMENT ---
Author Name dave acosta Address Unknown Organization [facility] Address [address] [place] [address] Phone [phone] Care Team Providers Care Director Of Strategic Marketing Name Role Phone Amara Lomeli MD Unavailable Amara Lomeli MD Unavailable [phone] PROBLEMS Condition Status Date Provider Notes Family History of CVA or Stroke: active Mauricio Lomeli MD Cardiovascular screening active Amara quiroga MD Syncope active Amara Lomeli MD Dizziness and lightheadedness active aSe Lomeli MD Tobacco abuse active Amara Lomeli MD Endometriosis active Amara Lomeli MD Chronic interstitial cystitis active Sae Lomeli MD Cardiology examination active Amara english MD Nephrolithiasis active Amara Lomeli MD Tachycardia active Amara Lomeli MD ENCOUNTERS Date Type Provider Location Encounter Diag nosis - In-person encounter Office Visit Amara Lomeli MD [facility] Cardiology examinationNephrolithiasisTachycardia - In-person encounter Office Visit Amara Lomeli MD [facility] - In-person encounter Office Visit Amara Lomeli MD [facility] - In-person encounter Office Visit Amara Lomeli MD [facility] - In-person encounter Office Visit Amara Lomeli MD [facility] - In-person encounter Office Visit Amara Lomeli MD [facility] Family History of CVA or Stroke:Cardiovascular screeningSyncopeDizziness and lightheadednessTobacco abuseEndometriosisChronic interstitial cystitis VITAL SIGNS Date Observation Value Provider Body Mass Index (Ratio) 21.01 kg/m2 Nguyen Lomeli MD blood pressure, diastolic 84 mm[Hg] [facility], systolic 107 mm[Hg] [facility], oximetry 97 % [...] corralLog blood pressure, systolic 100 mm[Hg] [facility] blood pressure, diastolic 72 mm[Hg] [...] MD blood pressure, diastolic 86 mm[Hg] [facility], systolic 110 mm[Hg] Willa [facility] weight E&M 130 [lb_av] Ana Peconic height E&M 63 [in_i] Ana Adele blood pressure, diastolic 86 mm[Hg] Kr isty Adele blood pressure, systolic 110 mm[Hg] Kri sty Peconic blood pressure, resting No Pablo ceron Peconic respiratory rate E&M 18 /min Ana Adele pulse rate 95 /min Ana Adele oxygen saturation, oximetry 97 % Ana Peconic ALLERGIES Allergy Name Onset Date Reaction Criticality [...] WEEKLY DIRECTED. REASONS CHRONIC BLADDER W - [facility] EstroGel 1.25 gram/actuation gel in metered-dose pump active APPLY EXTERNALLY TO SPECIFIC AREA OF SKIN EVERY DAY Ana Angulo cyclobenzaprine 10 mg tablet active TAKE 1 TABLET BY MOUTH AT BEDTIME Ana Angulo amitriptyline 10 mg tablet completed - Manda Ventimiglia [facility] progesterone micronized 100 mg capsule active Take 1 capsule by mouth once a day [facility] bupivacaine HCl 0.5% (5 mg/mL) solution completed - [facility] valacyclovir 500 mg tablet active TAKE 1 TABLET BY MOUTH EVERY DAY Ana Angulo estrogens-methylte stosterone 0.625-1.25 mg tablet completed - Mandajulienne Camachomiglmoo [facility] SOCIAL HISTORY Date Observation Value Provider [...] history of marijuana use no Manda Camachomiglia [employer] drug use no Manda Camposg zev [employer] alcohol use, average drinks per day social Mandajulienne Camachomiglmoo [facility] alcohol use yes Manda Ventimig zev [employer] smoking history, tot al pack/day .5 PK QD Manda Ventimiglia [employer] cigarette use yes Manda Ventimi glia [employer] smoking status Current every da y smoker Manda Ventimiglia [employer] alcohol use, average drinks per day social Manda Ventimiglia [employer] drug use no Manda Ventimig zev [employer] alcohol use yes Manda Ventimig zev [employer] Exercise counseling yes Karina smith smoking history, [...] Payer name Policy type / Coverage type [place] red [employer] party ID [facility] [id number] ADVANCE DIRECTIVES Name Date DISCUSSED - NO DECISION MADE TREATMENT PLAN Date Name Performer [id number],S, Manda hendricks [facility] [id number],C,c essation encouraged. She is down to 5 cigarettes a day Manda Bowman [facility] [id number],C,h as had very limited episodes over the last year. She states improves with hydration, thus most likely secondary to dehydration. will continue to monitor Manda Bowman [facility] [id number],C,n o recurrence. EKG unchanged. Will monitor H er updated medication list for this problem includes: Heparin (porcine) 10,000 Unit/ml Solution (Heparin (porcine)) ..... 1 ml by intravesical route two times a week mix with bupivacaine. insert per urethral catheter weekly as directed. reasons chronic bladder w Manda Bowman [facility] [id number],S, C essation is strongly advised. [facility] [id number],S, O n medications Kathya [facility] [id number],C, N o further episodes of dizziness Kathya [facility] [id number],S, N o recurrence [facility] [id number],B,O nly one reported episode of dizziness. Monitor showed several incidences of sinus tachycardia, but no further episodes of syncope. If she has recurrence of syncope, she may benefit from a tilt table test. R ecommended she stay hydrated Amara Lomeli MD [id number],C,On medication s Amara Lomeli MD [id number],C,No recurrence Amara Lomeli MD [id number],S, C essation is strongly advised. Amara Lomeli MD [id number],B,O nly one reported episode of dizziness. Monitor showed several incidences of sinus tachycardia. R ecommended she stay hydrated Amara Lomeli MD [id number],C,Cessation is strongly advised. Amara Lomeli MD [id number],C,T wo weeks ago, patient had a syncopal episode and has felt lightheaded and dizzy since. She was evaluated at [facility] ED on 05/05/2021 with normal blood [...] Amara Lomeli MD Cardiology Manda Ventimigl ia [facility] Cardiology Manda Ventimigl ia [facility] Cardiology:cessation encouraged. Manda Bowman [facility] Cardiology:No recurr ent episodes N o palpitations, dizziness or chest pain P atient encouraged to remain hydrated E KG unchanged S he will return for follow up if needed. Manda Camachomiglmoo [facility] Cardiology Manda Ventimigl ia [facility] Cardiology:cessation encouraged. She is down to 5 cigarettes a day Manda Bowman [facility] Cardiology:has had v toby limited episodes over the last year. She states improves with hydration, thus most likely secondary to dehydration. will continue to monitor Manda Bowman [facility] Cardiology:no recurr ence. EKG unchanged. Will monitor H er updated medication list for this problem includes: Heparin (porcine) 10,000 Unit/ml Solution (Heparin (porcine)) ..... 1 ml by intravesical route two times a week mix with bupivacaine. insert per urethral catheter weekly as directed. reasons chronic bladder w Manda Bowman [facility] Cardiology: C essation is strongly advised. Kathya Cochran Cardiology: O n medications Kathya Taylorilmartín Cardiology: N o further episodes of dizziness [...] and dizzy since. She was evaluated at [facility] ED on 05/05/2021 with normal blood [...]
--- OUTSIDE RECORDS SUMMARY | 2025-01-29 16:18 | XMS_ITS | Clinical Summary ---
Author Organization [facility] Address [address] [place] [address] Care Team Providers Care Core Inspector Name Role Phone Gigi Kern MD Primary Care Provider [phone] Source Comments [facility],non-owned Affiliates and Associated Physician Practices is amultiple site organization consisting of ambulatory clinics and hospital sitesin [place], [place], [place] and [place]. This disclosure is being madepursuant to the Care Everywhere program and may not contain all information available regarding this patient. Last updated 18.[facility] Allergies Active Allergy Reactions Criticality Noted Date [...] mL 3 1 Active Heparin Sodium, Porcine, 06500 UNIT/ML injectionIndicat ions:Interstitia l Cystitis 1 mL [...] this topic Insurance ANTHEM ANTHEM Care Teams Core Inspector Relationship Specialty Start Date End Date Gigi Kern MD [address] [place] [address] PCP - General 11/07/18
[2025-01-29] MEDS: SODIUM CHLORIDE 0.9% IV 1,000 ML 999 ML IV CONT (16:22)
[2025-01-29] MEDS: ONDANSETRON INJ 4 MG/2 ML VIAL IV PUSH (16:24)
[2025-01-29] MEDS: MORPHINE SULFATE (*CRX) 4 MG/ML INJ IV PUSH (16:25)
--- NOTE | 2025-01-29 16:25 | PC.NURSE ---
Pt. had a hysterectomy. Bedside not needed.
[2025-01-29 16:30] LABS: Alanine Aminotransferase 20 U/L (6-35); Albumin Level 4.5 g/dL (3.5-5.1); Alkaline Phosphatase 104 U/L (38-126); Anion Gap 11 mmol/L (4-12); Aspartate Amino Transferase 28 U/L (14-36); Bilirubin,Total 0.6 mg/dL (0.2-1.3); Blood Urea Nitrogen 14 mg/dL (7-17); Calcium 9.9 mg/dL (8.4-10.2); Carbon Dioxide 17 mmol/L (22-30); Chloride 110 mmol/L (98-107); Estimated CRCL calculation 75 ml/min; Estimated Glomerular Filt Rate > 60; Glucose 153 mg/dL (65-110); Lipase 46 U/L (23-300); Potassium 3.9 mmol/L (3.4-5.0); Sodium 138 mmol/L (137-145); Total Protein 7.6 g/dL (6.3-8.2)
[2025-01-29 16:45] LABS: Band Neutrophils Percent 4 % (0-6); Lymphocytes Absolute Manual 2.09 K/mm3 (1.1-4.5); Monocytes Absolute Manual 0.12 K/mm3 (0.1-0.90); Monocytes Percent Manual 1 % (3-9); Neutrophils Absolute Manual 10.08 K/mm3 (1.3-6.7); Neutrophils Percent Manual 78 % (46-73); Platelet Estimate Adequate (Adequate); Schistocytes None Seen; Total Cells Counted 100
[2025-01-29 16:57] LABS: Appearance Urine Turbid (Clear); Color Urine Red (Yellow)
[2025-01-29 16:59] LABS: Glucose Urine UA Negative (Negative); Ketones Urine 4+ mg/dL (Negative); Protein Urine 2+ mg/dL (Negative); pH Urine 8.5 (5.0-9.0)
[2025-01-29 17:00] LABS: Add Urine Microscopic? YES; Bilirubin Urine Negative (Negative); Blood Urine 3+ (Negative); Nitrate Urine Negative (Negative)
[2025-01-29 17:01] LABS: Bacteria Urine 2+ /hpf; Leukocyte Esterase Ur Negative LEU/UL (Negative); RBC Urine >100 /hpf (0-2); Urobilinogen Urine 0.2 mg/dL (<2.0)
--- NOTE | 2025-01-29 17:25 | PC.NURSE ---
Pt. states I feel so much better. Thank you guys so much. Pt. able to ambulate with a steady gait to bathroom and return to bed.
[2025-01-29 17:57] VITALS: BP 98/72; PULSE 68; RESP 16; O2SAT 100
[2025-01-29 18:23] VITALS: TEMP 36.6
[2025-01-29 19:01] VITALS: BP 103/70; PULSE 74; RESP 16; O2SAT 98
[2025-01-29] MEDS: HYDROcodone/acetaminophen (*CRX) 5-325 MG TABLET 1 TAB PO (19:02)
== END 2025-01-29 19:21 | disposition home or self-care (01) ==
PROVIDERS: Emergency Provider Physician Assistant; PCP Urology
DX: R10.31 Right lower quadrant pain (principal); Z96.0 Presence of urogenital implants; F17.210 Nicotine dependence, cigarettes, uncomplicated
CPT/HCPCS: 36415; 74177; 80053; 81001; 83690; 85025; 85055; 87086; 93976; 96361; 96374; 96375; 99284; A9270; J2270; J2405; J7030; Q9967